=== PATIENT | male | born 1945 | race Two or more races ===

== ENCOUNTER 2017-06-04 22:58 | Inpatient (IN) | payer MEDICARE, MEDICAID ==
[~2017-06-04] VITALS: Ht 172.7 cm; Wt 88.5 kg
[~2017-06-04 22:58] MED LIST: ASPI81TA44 PO; ATEN50TA PO; CLOP75TA2 PO; ISOS30TA6 PO; METF500T4 PO; MULT-1168 PO; RANO10003 PO; ROSU10TA PO; SITA100T PO
[2017-06-04 23:22] LABS: BASOPHILS # (AUTO) 0.1 /CMM (0.0-0.2); BASOPHILS % (AUTO) 0.7 % (0.0-2.0); EOSINOPHILS # (AUTO) 0.1 /CMM (0.0-0.7); HEMATOCRIT 39 % (39-51); HEMOGLOBIN 12.3 g/dL (13.5-17.5); LYMPHOCYTES # (AUTO) 1.4 /CMM (0.8-4.8); LYMPHOCYTES % (AUTO) 18.9 % (20.0-44.0); MEAN CORPUSCULAR HEMOGLOBIN 26 PG (26.0-33.0); MEAN CORPUSCULAR HGB CONC 31 g/dl (31.0-36.0); MEAN CORPUSCULAR VOLUME 82 fL (80-96); MONOCYTES # (AUTO) 0.6 /CMM (0.1-1.30); MONOCYTES % (AUTO) 8.4 % (2.0-12.0); NEUTROPHILS # (AUTO) 5.1 /CMM (1.8-8.9); PLATELET COUNT (AUTO) 266 /CMM (150-450); WHITE BLOOD COUNT (AUTO) 7.2 K/uL (4.3-11.0)
--- NOTE | 2017-06-04 23:24 | NUR ---
71 YO MALE BIBA#89 PT FROM [facility], PT C/O CHEST PAIN SURG NURSE PT GIVEN 162MG OF ASPIRIN AND 3SPRAYS OF NITRO, PT PAIN FREE AT THIS TIME. PT SKIN WARM AND DRY, RR EVEN AN DUNLABORED. AWAITING ORDERS FROM [facility]
[2017-06-04 23:32] LABS: CALCIUM, SERUM 8.8 mg/dL (8.5-10.1); POTASSIUM 3.9 mmol/L (3.5-5.1)
[2017-06-04 23:40] LABS: INR 0.96 (0.87-1.13); PROTHROMBIN TIME 10.2 SECS (9.5-12.7)
[2017-06-04 23:41] LABS: TROPONIN I 0.044 ng/mL (0.00-0.056)
--- NOTE | 2017-06-05 | NUR ---
medicated pt as ordered
--- NOTE | 2017-06-05 00:58 | NUR ---
medicated pt as ordered
--- NOTE | 2017-06-05 01:21 | NUR ---
TRANSPORTED PT TO TELE BED WITHOUT INCIDENT
--- NOTE | 2017-06-05 01:28 | NUR ---
CUT TOBACCO BULKER INITIAL NOTES PT WAS BROUGHT UP BY ER VIA GURNEY, UNABLE TO AMBULATE. PT IS A/OX3 WITH CONFUSION. COMPLAINTS OF CHEST PAIN 8/10 AND KEEPS MUMBLING IN YI. BREATHING EVENLY AND UNLABORED ON ROOM AIR. TELE MONITOR SHOWS SR 83. IV ACCESS IS INTACT AND PATENT. BED IS IN LOW AND LOCKED POSITION, CALL LIGHT WITHIN REACH. WILL CONTINUE TO MONITOR PT
--- NOTE | 2017-06-05 01:50 | NUR ---
MEDS WERE HELD, ALREADY GIVEN IN ER PRIOR TO TRANSFER
[2017-06-05 04:00] VITALS: BP 153/85
--- NOTE | 2017-06-05 06:48 | NUR ---
SEMICONDUCTOR TECHNICIAN CLOSING NOTES PT IS IN BED RESTING. NO SIGNS OF SOB OR DISTRESS. TELE MONITOR SHOWING SR73. 0630 BS WAS 276- 6 UNITES WERE GIVEN. DENIES ANY CHEST PAIN AT THIS TIME. WILL ENDORSE TO DAYSHIFT
--- NOTE | 2017-06-05 07:30 | NUR ---
RN NOTES PATIENT ALERT AND ORIENTED X4. VS STABLE. NO C/O CHEST PAIN. NO RESPIRATORY DISTRESS NOTED. RESPIRATIONS EVEN AND UNLABORED. BED IN LOW POSITION. SIDE RAILS X2. CALL LIGHT WITHIN REACH. CONTINUE TO MONITOR.
[2017-06-05 08:00] VITALS: BP 180/85
[2017-06-05 08:09] LABS: TROPONIN I 0.325 ng/mL (0.00-0.056)
[2017-06-05 08:12] LABS: THYROID STIMULATING HORMONE 5.476 uIU/mL (0.358-3.74)
[2017-06-05 08:51] LABS: MAGNESIUM 1.5 mg/dL (1.8-2.4); PHOSPHORUS 3.1 mg/dL (2.5-4.9)
--- NOTE | 2017-06-05 12:30 | NUR ---
RN NOTES PATIENT COMPLAINED HEADACHE. TYLENOL 650 MG ADMINISTERED PRN. CONTINUE TO MONITOR.
--- NOTE | 2017-06-05 12:30 | NUR ---
RN NOTES PATIENT COMPLAINED NAUSEA AND VOMITING. 4 MG/2 ML ZOFRAN ADMINISTERED. CONTINUE TO MONITOR.
--- NOTE | 2017-06-05 19:35 | NUR ---
LOFTSMAN NOTE RECEIVED PATIENT FROM DAY SHIFT, PATIENT IS ALERT AND ORIENTEDX3, AZERI SPEAKER, ON BED REST, TELE MONITOR SR 71. IV ON LEFT WRIST 20G IS PATENT AND INTACT, HL ONLY. SRX2, BED IN LOW POSITION, CALL LIGHT WITHIN REACH, WILL CONTINUE TO MONITOR PATIENT.
--- NOTE | 2017-06-05 19:40 | NUR ---
TAPEMAN NOTE PATIENT COMPLAINS OF HEADACHE, TYLENOL 650MG PO GIVEN. WILL REASSESS EFFECTIVENESS.
--- NOTE | 2017-06-05 19:44 | NUR ---
AITCHBONE BREAKER NOTE DR. RIOS'S ORDER OF DUPLEX US ON LOWER EXTREMITIES RESULTED UPPER EXTREMITIES PER DAY SHIFT NURSE. FOLLOWED WITH RADIOLOGY ONCALL, THEY WILL F/U WITH MD AND WILL CALL BACK.
--- NOTE | 2017-06-05 19:48 | NUR ---
RN CLOSING NOTES PATIENT ALERT AND ORIENTED X4. VS STABLE. NO C/O CHEST PAIN. NO RESPIRATORY DISTRESS NOTED. RESPIRATIONS EVEN AND UNLABORED. BED IN LOW POSITION. SIDE RAILS X2. CALL LIGHT WITHIN REACH. ENDORSED TO WELDER/FABRICATORDATA ARCHITECT FOR CONTINUITY OF CARE.
[2017-06-05 20:00] VITALS: BP 188/103
--- NOTE | 2017-06-05 21:00 | NUR ---
MEDICAL STAFF CREDENTIALING COORDINATOR NOTE PATIENT'S BP AT 1999 WAS 188/103 PULSE 71. CONTACTED ONCALL MD CHAVARRIA, AND GOT AN ORDER OF CLONIDINE 0.1MG PO Q6H PRN. ORDERS PUT IN AND WILL CARRY OUT.
--- NOTE | 2017-06-05 23:50 | NUR ---
TOMBSTONE CARVER NOTE PATIENT COMPLAINS OF HEADACHE, MORPHINE 2MG IVP GIVEN. WILL MONITOR EFFECTIVENESS.
[2017-06-06] VITALS: BP 179/97
[2017-06-06 04:00] VITALS: BP 163/88
--- NOTE | 2017-06-06 05:55 | NUR ---
SVP DIGITAL SALES FOOD & COOKING NOTE PATIENT'S BS WAS 194MG/DL, NO INSULIN COVERAGE AT THIS TIME DUE TO BEING ON NPO STATUS FOR THE LEXISCAN THIS MORNING. CHG RN NOTIFIED WELL.
[2017-06-06 06:36] VITALS: BP 113/77
--- NOTE | 2017-06-06 06:54 | NUR ---
PROGRAM MANAGER NOTE PATIENT IS RESTING IN BED, NO S/S OF RESPIRATORY DISTRESS OR PAIN AT THIS TIME. IV ON LEFT WRIST IS PATENT AND INTACT, HL ONLY. TELE SR 65. PATIENT IS AWARE OF LEXISCAN TEST THIS MORNING. WILL ENDORSE TO DAY SHIFT NURSE FOR OMER.
[2017-06-06 07:24] LABS: EOSINOPHILS # (AUTO) 0.2 /CMM (0.0-0.7); EOSINOPHILS % (AUTO) 1.8 % (0.0-6.0); HEMATOCRIT 37 % (39-51); HEMOGLOBIN 11.8 g/dL (13.5-17.5); LYMPHOCYTES # (AUTO) 1.4 /CMM (0.8-4.8); LYMPHOCYTES % (AUTO) 15.6 % (20.0-44.0); MEAN CORPUSCULAR HEMOGLOBIN 26 PG (26.0-33.0); MEAN CORPUSCULAR HGB CONC 32 g/dl (31.0-36.0); MEAN CORPUSCULAR VOLUME 82 fL (80-96); MONOCYTES # (AUTO) 0.8 /CMM (0.1-1.30); MONOCYTES % (AUTO) 9.2 % (2.0-12.0); NEUTROPHILS # (AUTO) 6.7 /CMM (1.8-8.9); NEUTROPHILS % (AUTO) 73.4 % (43.0-81.0); PLATELET COUNT (AUTO) 276 /CMM (150-450); RDW COEFFICIENT OF VARIATION 15.9 (11.5-15.0); RED BLOOD CELL COUNT(AUTO) 4.49 MIL/uL (4.5-6.0); WHITE BLOOD COUNT (AUTO) 9.1 K/uL (4.3-11.0)
--- NOTE | 2017-06-06 07:30 | NUR ---
RN NOTES PATIENT ALERT AND ORIENTED X3. VS STABLE. NO C/O CHEST PAIN. NO RESPIRATORY DISTRESS NOTED. RESPIRATIONS EVEN AND UNLABORED. IV ACCESS ON LEFT WRIST IS PATENT AND INTACT. BED IN LOW POSITION. SIDE RAILS X2. CALL LIGHT WITHIN REACH. CONTINUE TO MONITOR.
[2017-06-06 07:51] LABS: ALBUMIN 3.1 g/dL (3.4-5.0); BILIRUBIN,TOTAL 0.7 mg/dL (0.2-1.0); CALCIUM, SERUM 8.9 mg/dL (8.5-10.1); CREATININE 0.9 mg/dL (0.6-1.3); MAGNESIUM 1.5 mg/dL (1.8-2.4); PHOSPHORUS 3.7 mg/dL (2.5-4.9); POTASSIUM 3.9 mmol/L (3.5-5.1); TOTAL PROTEIN, SERUM 7.2 g/dL (6.4-8.2); TROPONIN I 0.298 ng/mL (0.00-0.056)
[2017-06-06 08:00] VITALS: BP 113/77
--- NOTE | 2017-06-06 14:54 | NUR ---
RN NOTES 2 G OF MG TO BE GIVEN. PLEASE SEE MAR FOR CLARIFICATION.
[2017-06-06 16:00] VITALS: BP 161/97
--- NOTE | 2017-06-06 17:45 | NUR ---
RN NOTES PATIENT BLOOD PRESSURE 161/91. CLONIDINE 0.1 MG WAS GIVEN PRN. CONTINUE MONITOR AT THIS TIME.
--- NOTE | 2017-06-06 19:05 | NUR ---
RN CLOSING NOTES PATIENT ALERT AND ORIENTED X3. VS STABLE. NO C/O CHEST PAIN. NO RESPIRATORY DISTRESS NOTED. RESPIRATIONS EVEN AND UNLABORED. IV ACCESS ON RIGHT FOREARM IS PATENT AND INTACT. BED IN LOW POSITION. SIDE RAILS X2. CALL LIGHT WITHIN REACH. CONTINUE TO MONITOR AND ENDORSE TO LAWN CARE SPECIALISTPROCEDURAL NURSE FOR CONTINUITY OF CARE.
--- NOTE | 2017-06-06 19:40 | NUR ---
MS RN NOTE RECEIVED PATIENT FROM DAY SHIFT, PATIENT IS ALERT AND ORIENTEDX3, MOHAWK SPEAKER, SLEEPING AT THIS TIME. NO S/S OF RESPIRATORY DISTRESS OR PAIN AT THIS TIME. IV ON RIGHT FA IS PATENT AND INTACT, HL ONLY. SRX2, BED IN LOW POSITION, CALL LIGHT WITHIN REACH, WILL CONTINUE TO MONITOR PATIENT.
[2017-06-06 20:00] VITALS: BP 133/70
--- NOTE | 2017-06-07 06:46 | NUR ---
MS RN NOTE PATIENT IS RESTING IN BED COMFORTABLY, NO ACUTE EVENT NOTED THROUGHOUT THE SHIFT. IV ON RIGHT FA IS PATENT AND INTACT, HL. WILL ENDORSE TO DAY SHIFT NURSE FOR OMER.
--- NOTE | 2017-06-07 07:30 | NUR ---
MS RN AM NOTES RECEIVED PATIENT IN BED, ALERT AND ORIENTEDX3, ALBANIAN SPEAKING, ON ROOM AIR, NOT IN ANY DISTRESS, NO SOB, DENIES PAIN AT THIS TIME, IV ON RIGHT FA G22 FLUSHES WELL, SITE CLEAR, CCHO DIET, BED REST, INDEPENDENT OF BED MOBILITY, SRX2, BED IN LOW POSITION, CALL LIGHT WITHIN REACH, WILL CONTINUE TO MONITOR PATIENT.
[2017-06-07 07:50] LABS: CALCIUM, SERUM 8.4 mg/dL (8.5-10.1); MAGNESIUM 1.6 mg/dL (1.8-2.4); POTASSIUM 3.7 mmol/L (3.5-5.1)
[2017-06-07 08:00] VITALS: BP 144/67
--- NOTE | 2017-06-07 10:20 | NUR ---
MS RN NOTES ADMINISTERED DUE MEDS. MAGNESIUM IV BAG #1 GIVEN AND COMPLETED. STARTED MAGNESIUM BAG #2.
--- NOTE | 2017-06-07 12:04 | NUR ---
MS RN NOTES ACCUCHECK. BS 214 MG/DL. ADMINISTERED 4 UNITS HUM R PER SS.
--- NOTE | 2017-06-07 13:04 | NUR ---
MS RN NOTES REPORT GIVEN TO ROOSEVELT RN - FACILITY STAFF. PATIENT TO BE PICKED UP TO AMBULANCE AT 1400
[2017-06-07 16:00] VITALS: BP 177/91
--- NOTE | 2017-06-07 16:55 | NUR ---
MS RN NOTES BP 177/91 HR 82. CATAPRES 0.1 MG GIVEN.
--- NOTE | 2017-06-07 17:00 | NUR ---
RN NOTES ACCUCHECK. BS 146 MG/DL. ADMINISTERED 2 UNITS HUM R PER SS.
[2017-06-07 17:30] VITALS: BP 165/86
--- NOTE | 2017-06-07 17:33 | NUR ---
MS RN NOTES BP RECHECKED 165/86 NE 62, RR 19 TEMP 98.2 O2 SAT 95% PATIENT DISCHARGED TO [facility] TODAY PER MD IN STABLE CONDITION. PROVIDED DC INSTRUCTIONS, MED RECON LIST AND HEALTH TEACHINGS. PT TO FOLLOW UP WITH PCP IN 1-2 WEEKS AND WILL MAKE OWN APPOINTMENT OR PER FACILITY PROTOCOL. RFA IV ACCESS REMOVED, CATH TIP COMPLETE NO BLEEDING DRESSING IN PLACE. ALL PHOTOS OF SKIN ISSUES TAKEN AND PLACED INSIDE CHART. ALL BELONGINGS CHECKED AND RETURNED. ALL PAPER WORKS SIGNED. PT PICKED UP BY 2 AMBULANCE CREW TO TRANSPORT TO FACILITY. ACCOMPANIED BY PT'S TO FACILITY.
== END 2017-06-07 17:30 | DRG 281 ==
LOC: ER 22:59 → TELE 06-05 00:36 → MED 06-06 10:13
DX: I21.4 Non-ST elevation (NSTEMI) myocardial infarction (principal); D68.59 Other primary thrombophilia; I11.0 Hypertensive heart disease with heart failure; I50.9 Heart failure, unspecified; I48.0 Paroxysmal atrial fibrillation; E83.42 Hypomagnesemia; E11.9 Type 2 diabetes mellitus without complications; Z95.1 Presence of aortocoronary bypass graft; E78.5 Hyperlipidemia, unspecified; E66.9 Obesity, unspecified; I25.10 Atherosclerotic heart disease of native coronary artery without angina pectoris; Z68.29 Body mass index [BMI] 29.0-29.9, adult; Z79.84 Long term (current) use of oral hypoglycemic drugs; Z79.82 Long term (current) use of aspirin
CPT/HCPCS: 36415; 71010-TC; 80048-TC; 80053-TC; 80061-TC; 82306; 82962-TC; 83735-TC; 84100-TC; 84439-TC; 84443-TC; 84484-TC; 85025-TC; 85730-TC; 87081-TC; 93307-TC; 93970-TC; A4606; A9502; J0360; J1815; J2270; J2405; J2785; J3475; J3490; Z7610

== ENCOUNTER 2017-09-23 14:40 | Emergency (ER) | payer OTHER, MEDICARE, MEDICAID ==
[~2017-09-23] VITALS: Ht 162.6 cm; Wt 74.8 kg
[~2017-09-23 14:40] MED LIST changes: +CLOP75TA15 PO; -CLOP75TA2 PO
--- NOTE | 2017-09-23 14:46 | NUR ---
PT BROCK FROM [employer]. TONGUE LAC NOTED. PT STATES WAS BLEEDING SINCE THIS AM. UNABLE TO RECALL WHAT HAPPEN. 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 DENIES ANY OTHER COMPLAINTS. AWAITING MD PASCUAL.
--- NOTE | 2017-09-23 15:26 | NUR ---
DR BRADEN AT BEDSIDE FOR EVAL.
[2017-09-23 15:45] LABS: BASOPHILS # (AUTO) 0.3 /CMM (0.0-0.2); BASOPHILS % (AUTO) 4.2 % (0.0-2.0); EOSINOPHILS # (AUTO) 0.1 /CMM (0.0-0.7); EOSINOPHILS % (AUTO) 0.7 % (0.0-6.0); HEMATOCRIT 24 % (39-51); HEMOGLOBIN 8.1 g/dL (13.5-17.5); LYMPHOCYTES # (AUTO) 1.3 /CMM (0.8-4.8); LYMPHOCYTES % (AUTO) 17.6 % (20.0-44.0); MEAN CORPUSCULAR HEMOGLOBIN 26 PG (26.0-33.0); MEAN CORPUSCULAR HGB CONC 33 g/dl (31.0-36.0); MEAN CORPUSCULAR VOLUME 80 fL (80-96); MONOCYTES # (AUTO) 0.4 /CMM (0.1-1.30); MONOCYTES % (AUTO) 5.5 % (2.0-12.0); NEUTROPHILS # (AUTO) 5.2 /CMM (1.8-8.9); PLATELET COUNT (AUTO) 279 /CMM (150-450); RDW COEFFICIENT OF VARIATION 15.4 (11.5-15.0); RED BLOOD CELL COUNT(AUTO) 3.05 MIL/uL (4.5-6.0); WHITE BLOOD COUNT (AUTO) 7.3 K/uL (4.3-11.0)
[2017-09-23 15:52] LABS: CALCIUM, SERUM 8.6 mg/dL (8.5-10.1); CARBON DIOXIDE 30 mmol/L (21-32); CHLORIDE 105 mmol/L (98-107); CREATININE 0.9 mg/dL (0.6-1.3); GLUCOSE 160 mg/dL (74-106); POTASSIUM 4.3 mmol/L (3.5-5.1); SODIUM SERUM 140 mmol/L (136-145); UREA NITROGEN, BLOOD 22 mg/dL (7-18)
[2017-09-23 15:57] LABS: INR 1.17 (0.87-1.13)
--- NOTE | 2017-09-23 16:00 | NUR ---
CALLED AT [phone], TRANSFERRED CALL TO .
--- NOTE | 2017-09-23 16:12 | NUR ---
REQUESTED NINO FOR TRANSPORT BACK TO [facility], ETA 30-45 MIN
--- NOTE | 2017-09-23 16:47 | NUR ---
Patient discharged to home in stable condition. Written and verbal after care instructions given. Patient verbalizes understanding of instruction.
[2017-09-23 16:48] VITALS: BP 131/63
== END 2017-09-23 16:49 | disposition home or self-care (01) ==
LOC: ER 14:44
DX: R58 Hemorrhage, not elsewhere classified (principal); T45.515A Adverse effect of anticoagulants, initial encounter; D64.9 Anemia, unspecified; E03.9 Hypothyroidism, unspecified; E11.9 Type 2 diabetes mellitus without complications; F03.90 Unspecified dementia, unspecified severity, without behavioral disturbance, psychotic disturbance, mood disturbance, and anxiety; F32.9 Major depressive disorder, single episode, unspecified; F41.9 Anxiety disorder, unspecified; I10 Essential (primary) hypertension; I25.10 Atherosclerotic heart disease of native coronary artery without angina pectoris; I48.91 Unspecified atrial fibrillation; Z79.82 Long term (current) use of aspirin; Z95.1 Presence of aortocoronary bypass graft; Y92.89 Other specified places as the place of occurrence of the external cause
CPT/HCPCS: 36415; 80048; 85025; 85730; 99284; A4606; Z7610

== ENCOUNTER 2017-09-24 21:49 | Inpatient (IN) | payer MEDICARE, MEDICAID ==
[~2017-09-24] VITALS: Ht 167.6 cm; Wt 86.2 kg
[2017-09-24 22:03] LABS: BASOPHILS # (AUTO) 0.2 /CMM (0.0-0.2); BASOPHILS % (AUTO) 3.2 % (0.0-2.0); EOSINOPHILS # (AUTO) 0.1 /CMM (0.0-0.7); EOSINOPHILS % (AUTO) 1.3 % (0.0-6.0); HEMATOCRIT 23 % (39-51); HEMOGLOBIN 7.2 g/dL (13.5-17.5); LYMPHOCYTES # (AUTO) 1.7 /CMM (0.8-4.8); LYMPHOCYTES % (AUTO) 26.3 % (20.0-44.0); MEAN CORPUSCULAR HEMOGLOBIN 26 PG (26.0-33.0); MEAN CORPUSCULAR HGB CONC 32 g/dl (31.0-36.0); MEAN CORPUSCULAR VOLUME 82 fL (80-96); MONOCYTES # (AUTO) 0.4 /CMM (0.1-1.30); MONOCYTES % (AUTO) 6.4 % (2.0-12.0); NEUTROPHILS % (AUTO) 62.8 % (43.0-81.0); PLATELET COUNT (AUTO) 253 /CMM (150-450); RDW COEFFICIENT OF VARIATION 16.3 (11.5-15.0); RED BLOOD CELL COUNT(AUTO) 2.75 MIL/uL (4.5-6.0); WHITE BLOOD COUNT (AUTO) 6.4 K/uL (4.3-11.0)
[2017-09-24 22:28] LABS: CALCIUM, SERUM 8.6 mg/dL (8.5-10.1); CARBON DIOXIDE 27 mmol/L (21-32); CHLORIDE 104 mmol/L (98-107); CREATININE 1.3 mg/dL (0.6-1.3); GLUCOSE 249 mg/dL (74-106); INR 1.3 (0.87-1.13); POTASSIUM 4.7 mmol/L (3.5-5.1); SODIUM SERUM 141 mmol/L (136-145); UREA NITROGEN, BLOOD 21 mg/dL (7-18)
[2017-09-24] MEDS ORDERED: ASPIRIN 325 MG TABLET PO ONE (22:30)
[2017-09-24] MEDS ORDERED: NITROGLYCERIN 0.4 MG/TAB BOTTLE SL ONE (22:30)
[2017-09-24] MEDS ORDERED: IV NS 0.9% 1,000 ML BAG IV ONE (22:30)
[2017-09-24] MEDS ORDERED: ONDANSETRON HCL/PF 4 MG/2 ML VIAL ONE (22:35)
[2017-09-24] MEDS ORDERED: MORPHINE SULFATE INJ 4 MG/ML DISP.SYRIN ONE (22:36)
[2017-09-24 22:37] LABS: TROPONIN I 0.106 ng/mL (0.00-0.056)
[2017-09-24] MEDS ORDERED: MORPHINE SULFATE INJ 2 MG/ML DISP.SYRIN IV ONE (23:00)
[2017-09-24] MEDS ORDERED: ONDANSETRON HCL/PF 4 MG/2 ML VIAL IV ONE (23:00)
[2017-09-25] VITALS (14 sets, daily range): BP systolic 106–181; BP diastolic 56–91
[2017-09-25] MEDS ORDERED: DEXTROSE 50%-WATER 50 ML DISP.SYRIN IV PRN (00:30)
[2017-09-25] MEDS ORDERED: ONDANSETRON HCL/PF 4 MG/2 ML VIAL IVP PRN (00:30)
[2017-09-25] MEDS ORDERED: ZOLPIDEM TARTRATE 5 MG TABLET PO PRN (00:30)
[2017-09-25] MEDS ORDERED: Z GUARD REMEDY 2 OZ OINT TP PRN (00:30)
[2017-09-25] MEDS ORDERED: ACETAMINOPHEN 325 MG TABLET ONE (01:44)
[2017-09-25] MEDS: ACETAMINOPHEN 325 MG TABLET PO PRN ×2 (01:46→22:45)
[2017-09-25] MEDS: BLOOD SUGAR DIAGNOSTIC 1 EACH STRIP IN SCH ×4 (06:30→21:51)
[2017-09-25] MEDS: INSULIN REGULAR, HUMAN 100 UNIT/ML 3 ML VIAL SQ PRN ×4 (06:31→21:54)
[2017-09-25 07:52] LABS: BASOPHILS # (AUTO) 0.1 /CMM (0.0-0.2); BASOPHILS % (AUTO) 1.2 % (0.0-2.0); EOSINOPHILS # (AUTO) 0.1 /CMM (0.0-0.7); EOSINOPHILS % (AUTO) 1.4 % (0.0-6.0); HEMATOCRIT 25 % (39-51); HEMOGLOBIN 8.4 g/dL (13.5-17.5); LYMPHOCYTES # (AUTO) 1.7 /CMM (0.8-4.8); LYMPHOCYTES % (AUTO) 22.5 % (20.0-44.0); MEAN CORPUSCULAR HEMOGLOBIN 28 PG (26.0-33.0); MEAN CORPUSCULAR HGB CONC 33 g/dl (31.0-36.0); MEAN CORPUSCULAR VOLUME 84 fL (80-96); MONOCYTES # (AUTO) 0.7 /CMM (0.1-1.30); MONOCYTES % (AUTO) 9.2 % (2.0-12.0); NEUTROPHILS % (AUTO) 65.7 % (43.0-81.0); PLATELET COUNT (AUTO) 225 /CMM (150-450); RDW COEFFICIENT OF VARIATION 16.1 (11.5-15.0); RED BLOOD CELL COUNT(AUTO) 3.03 MIL/uL (4.5-6.0); WHITE BLOOD COUNT (AUTO) 7.6 K/uL (4.3-11.0)
[2017-09-25 08:07] LABS: ALANINE AMINOTRANSFERASE 22 U/L (12-78); ALKALINE PHOSPHATASE 81 U/L (46-116); ASPARTATE AMINOTRANSFERASE 15 U/L (15-37); BILIRUBIN,TOTAL 0.3 mg/dL (0.2-1.0); CALCIUM, SERUM 8.6 mg/dL (8.5-10.1); CARBON DIOXIDE 30 mmol/L (21-32); CHLORIDE 104 mmol/L (98-107); CREATININE 1.1 mg/dL (0.6-1.3); GLUCOSE 180 mg/dL (74-106); MAGNESIUM 1.7 mg/dL (1.8-2.4); PHOSPHORUS 3.3 mg/dL (2.5-4.9); POTASSIUM 3.9 mmol/L (3.5-5.1); SODIUM SERUM 139 mmol/L (136-145); TOTAL PROTEIN, SERUM 6.5 g/dL (6.4-8.2); UREA NITROGEN, BLOOD 20 mg/dL (7-18)
[2017-09-25 08:10] LABS: CHOLESTEROL 185 mg/dL (<200); HDL CHOLESTEROL 35 mg/dL (40-60); LDL 130 mg/dL (0-99); THYROID STIMULATING HORMONE 8.076 uIU/mL (0.358-3.74); TRIGLYCERIDES 144 mg/dL (30-150)
[2017-09-25 08:21] LABS: TROPONIN I 1.161 ng/mL (0.00-0.056)
[2017-09-25] MEDS: ISOSORBIDE MONONITRATE (30MG) 30 MG TAB.SR.24H PO SCH (08:57)
[2017-09-25] MEDS: CLOPIDOGREL BISULFATE 75 MG TABLET PO SCH (08:57)
[2017-09-25] MEDS: METFORMIN 500 MG TABLET PO SCH ×2 (08:57→16:25)
[2017-09-25] MEDS: ATENOLOL 50 MG TABLET PO SCH (08:58)
[2017-09-25] MEDS: ASPIRIN EC 81 MG TABLET.DR PO SCH (08:58)
[2017-09-25] MEDS: LINAGLIPTIN 5 MG TABLET PO SCH (08:58)
[2017-09-25] MEDS: LOSARTAN POTASSIUM 50 MG TABLET PO SCH (08:59)
[2017-09-25] MEDS: Magnesium 1GM/D5W 100ML PREMIX 100 ML IV SCH ×2 (08:59→09:49)
[2017-09-25] MEDS: ENOXAPARIN SODIUM 80 MG/0.8 ML DISP.SYRIN SQ SCH ×2 (09:50→21:51)
[2017-09-25] MEDS: ATORVASTATIN 10 MG TABLET PO SCH (21:47)
[2017-09-25] MEDS ORDERED: NITROGLYCERIN 0.4 MG/TAB BOTTLE ONE (23:59)
[2017-09-26] VITALS (9 sets, daily range): BP systolic 96–166; BP diastolic 57–92
[2017-09-26] MEDS: NITROGLYCERIN 0.4 MG/TAB BOTTLE SL PRN ×5 (00:02→22:13)
[2017-09-26] MEDS ORDERED: NITROGLYCERIN PACKET 1 GM PACKET ONE (00:08)
[2017-09-26] MEDS ORDERED: ALPRAZOLAM 0.25 MG TABLET ONE (00:09)
[2017-09-26] MEDS: NITROGLYCERIN PACKET 1 GM PACKET TOP SCH ×3 (00:10→17:03)
[2017-09-26] MEDS: ALPRAZOLAM 0.25 MG TABLET PO PRN (00:43)
[2017-09-26] MEDS ORDERED: MORPHINE SULFATE INJ 4 MG/ML DISP.SYRIN ONE (01:12)
[2017-09-26] MEDS: MORPHINE SULFATE INJ 4 MG/ML DISP.SYRIN IV PRN ×2 (01:14→22:10)
[2017-09-26] MEDS ORDERED: HEPARIN INFUSION/D5W 500 ML IV PRN ×2 (01:30→02:30)
[2017-09-26] MEDS ORDERED: AMIODARONE 900 MG in IV D5W 482 ML IV PRN (01:30)
[2017-09-26] MEDS ORDERED: DILTIAZEM HCL 50 MG IV IV ONE (01:30)
[2017-09-26] MEDS ORDERED: AMIODARONE 150 MG in IV D5W 100 ML IV ONE (01:30)
[2017-09-26] MEDS ORDERED: AMIODARONE 150 MG/3 ML VIAL IV ONE ×2 (01:37→01:39)
[2017-09-26] MEDS ORDERED: DILTIAZEM HCL 25 MG IV ONE (02:00)
[2017-09-26] MEDS ORDERED: HEPARIN SODIUM, PORCINE 5000 UNITS/1 ML VIAL ONE (02:25)
[2017-09-26] MEDS ORDERED: HEPARIN SODIUM, PORCINE 5000 UNITS/1 ML VIAL IV ONE (02:30)
[2017-09-26 07:03] LABS: EOSINOPHILS # (AUTO) 0.1 /CMM (0.0-0.7); EOSINOPHILS % (AUTO) 1.6 % (0.0-6.0); HEMATOCRIT 25 % (39-51); LYMPHOCYTES # (AUTO) 2.4 /CMM (0.8-4.8); LYMPHOCYTES % (AUTO) 25.5 % (20.0-44.0); MEAN CORPUSCULAR HEMOGLOBIN 27 PG (26.0-33.0); MEAN CORPUSCULAR HGB CONC 33 g/dl (31.0-36.0); MEAN CORPUSCULAR VOLUME 84 fL (80-96); MONOCYTES # (AUTO) 0.8 /CMM (0.1-1.30); MONOCYTES % (AUTO) 8.6 % (2.0-12.0); NEUTROPHILS # (AUTO) 5.9 /CMM (1.8-8.9); NEUTROPHILS % (AUTO) 64.3 % (43.0-81.0); PLATELET COUNT (AUTO) 227 /CMM (150-450); RDW COEFFICIENT OF VARIATION 16.6 (11.5-15.0); RED BLOOD CELL COUNT(AUTO) 2.92 MIL/uL (4.5-6.0); WHITE BLOOD COUNT (AUTO) 9.2 K/uL (4.3-11.0)
[2017-09-26 07:15] LABS: ALANINE AMINOTRANSFERASE 25 U/L (12-78); ALBUMIN 2.9 g/dL (3.4-5.0); ALKALINE PHOSPHATASE 79 U/L (46-116); ASPARTATE AMINOTRANSFERASE 37 U/L (15-37); BILIRUBIN,TOTAL 0.4 mg/dL (0.2-1.0); CALCIUM, SERUM 8.6 mg/dL (8.5-10.1); CARBON DIOXIDE 27 mmol/L (21-32); CHLORIDE 102 mmol/L (98-107); CREATININE 1.1 mg/dL (0.6-1.3); GLUCOSE 253 mg/dL (74-106); MAGNESIUM 1.5 mg/dL (1.8-2.4); PHOSPHORUS 3.2 mg/dL (2.5-4.9); POTASSIUM 4.1 mmol/L (3.5-5.1); SODIUM SERUM 136 mmol/L (136-145); TOTAL PROTEIN, SERUM 6.4 g/dL (6.4-8.2); UREA NITROGEN, BLOOD 13 mg/dL (7-18)
[2017-09-26 07:38] LABS: TROPONIN I 1.679 ng/mL (0.00-0.056)
[2017-09-26] MEDS: BLOOD SUGAR DIAGNOSTIC 1 EACH STRIP IN SCH ×4 (08:41→21:06)
[2017-09-26] MEDS: LINAGLIPTIN 5 MG TABLET PO SCH (08:46)
[2017-09-26] MEDS: ISOSORBIDE MONONITRATE (30MG) 30 MG TAB.SR.24H PO SCH (08:47)
[2017-09-26] MEDS: METFORMIN 500 MG TABLET PO SCH ×2 (08:47→16:14)
[2017-09-26] MEDS: LOSARTAN POTASSIUM 50 MG TABLET PO SCH (08:48)
[2017-09-26] MEDS: CLOPIDOGREL BISULFATE 75 MG TABLET PO SCH (08:49)
[2017-09-26] MEDS: ASPIRIN EC 81 MG TABLET.DR PO SCH (08:51)
[2017-09-26] MEDS: ENOXAPARIN SODIUM 80 MG/0.8 ML DISP.SYRIN SQ SCH (08:52)
[2017-09-26] MEDS: ATENOLOL 50 MG TABLET PO SCH (09:03)
[2017-09-26] MEDS: INSULIN REGULAR, HUMAN 100 UNIT/ML 3 ML VIAL SQ PRN ×4 (10:12→21:09)
[2017-09-26] MEDS: Magnesium 1GM/D5W 100ML PREMIX 100 ML IV SCH ×2 (12:57→14:21)
[2017-09-26] MEDS ORDERED: SOD FERRIC GLUC 125 MG in IV NS 0.9% 100 ML IV SCH (14:00)
[2017-09-26] MEDS: ENOXAPARIN SODIUM 100 MG/ML DISP.SYRIN SQ SCH (20:59)
[2017-09-26] MEDS: ATORVASTATIN 10 MG TABLET PO SCH (21:02)
[2017-09-27] VITALS: BP 142/78
[2017-09-27] MEDS: NITROGLYCERIN PACKET 1 GM PACKET TOP SCH ×3 (00:13→12:01)
[2017-09-27 00:24] LABS: INR 0.99 (0.87-1.13)
[2017-09-27] MEDS: MORPHINE SULFATE INJ 4 MG/ML DISP.SYRIN IV PRN ×2 (01:09→06:58)
[2017-09-27 04:00] VITALS: BP 113/61
[2017-09-27 05:59] LABS: BASOPHILS % (AUTO) 0.4 % (0.0-2.0); EOSINOPHILS # (AUTO) 0.1 /CMM (0.0-0.7); EOSINOPHILS % (AUTO) 1.8 % (0.0-6.0); HEMATOCRIT 24 % (39-51); HEMOGLOBIN 7.7 g/dL (13.5-17.5); LYMPHOCYTES # (AUTO) 1.2 /CMM (0.8-4.8); LYMPHOCYTES % (AUTO) 17.5 % (20.0-44.0); MEAN CORPUSCULAR HEMOGLOBIN 27 PG (26.0-33.0); MEAN CORPUSCULAR HGB CONC 32 g/dl (31.0-36.0); MEAN CORPUSCULAR VOLUME 84 fL (80-96); MONOCYTES # (AUTO) 0.7 /CMM (0.1-1.30); MONOCYTES % (AUTO) 9.7 % (2.0-12.0); NEUTROPHILS # (AUTO) 4.8 /CMM (1.8-8.9); NEUTROPHILS % (AUTO) 70.6 % (43.0-81.0); PLATELET COUNT (AUTO) 231 /CMM (150-450); RDW COEFFICIENT OF VARIATION 16.7 (11.5-15.0); RED BLOOD CELL COUNT(AUTO) 2.81 MIL/uL (4.5-6.0); WHITE BLOOD COUNT (AUTO) 6.8 K/uL (4.3-11.0)
[2017-09-27] MEDS: BLOOD SUGAR DIAGNOSTIC 1 EACH STRIP IN SCH ×2 (07:30→12:01)
[2017-09-27] MEDS: ALPRAZOLAM 0.25 MG TABLET PO PRN (07:38)
[2017-09-27 07:39] LABS: CALCIUM, SERUM 8.7 mg/dL (8.5-10.1); CARBON DIOXIDE 26 mmol/L (21-32); CHLORIDE 104 mmol/L (98-107); CREATININE 0.9 mg/dL (0.6-1.3); GLUCOSE 170 mg/dL (74-106); PHOSPHORUS 3.3 mg/dL (2.5-4.9); POTASSIUM 4.2 mmol/L (3.5-5.1); SODIUM SERUM 139 mmol/L (136-145); UREA NITROGEN, BLOOD 13 mg/dL (7-18)
[2017-09-27] MEDS: LOSARTAN POTASSIUM 50 MG TABLET PO SCH (08:09)
[2017-09-27] MEDS: ASPIRIN EC 81 MG TABLET.DR PO SCH (08:09)
[2017-09-27] MEDS: ISOSORBIDE MONONITRATE (30MG) 30 MG TAB.SR.24H PO SCH (08:10)
[2017-09-27] MEDS: ATENOLOL 50 MG TABLET PO SCH (08:10)
[2017-09-27] MEDS: METOPROLOL TARTRATE INJ 5 MG/5 ML AMPUL IVP PRN ×3 (08:24→08:39)
[2017-09-27] MEDS: METFORMIN 500 MG TABLET PO SCH (08:38)
[2017-09-27] MEDS: LINAGLIPTIN 5 MG TABLET PO SCH (08:38)
[2017-09-27] MEDS: ENOXAPARIN SODIUM 100 MG/ML DISP.SYRIN SQ SCH (08:38)
[2017-09-27] MEDS ORDERED: CLOPIDOGREL BISULFATE 75 MG TABLET PO SCH (09:00)
[2017-09-27 09:42] LABS: TROPONIN I 1.306 ng/mL (0.00-0.056)
[2017-09-27 09:49] LABS: BILIRUBIN,TOTAL 0.3 mg/dL (0.2-1.0)
[2017-09-27 09:50] LABS: ALANINE AMINOTRANSFERASE 24 U/L (12-78); ALKALINE PHOSPHATASE 80 U/L (46-116); ASPARTATE AMINOTRANSFERASE 41 U/L (15-37); MAGNESIUM 1.8 mg/dL (1.8-2.4); TOTAL PROTEIN, SERUM 6.5 g/dL (6.4-8.2)
[2017-09-27] MEDS ORDERED: AMIODARONE HCL 200 MG TABLET PO SCH (10:00)
[2017-09-27 12:01] VITALS: BP 112/82
== END 2017-09-27 13:03 | disposition short-term general hospital (02) | DRG 281 ==
LOC: ER 21:51 → TELE 22:53 → TELE-TD 09-26 01:37 → TELE1 09-26 11:06 → TELE-TD 09-26 11:09
PROVIDERS: ADMIT Nurse Practitioner Acute Care; ATTEND Nurse Practitioner Acute Care
PROC: 30233N1 Transfusion of Nonautologous Red Blood Cells into Peripheral Vein, Percutaneous Approach (ICD-10-PCS; principal; 2017-09-24)
DX: I24.9 Acute ischemic heart disease, unspecified (principal); I21.4 Non-ST elevation (NSTEMI) myocardial infarction; D68.59 Other primary thrombophilia; I11.0 Hypertensive heart disease with heart failure; E83.42 Hypomagnesemia; I50.9 Heart failure, unspecified; I48.91 Unspecified atrial fibrillation; D64.9 Anemia, unspecified; E11.9 Type 2 diabetes mellitus without complications; E03.9 Hypothyroidism, unspecified; E78.5 Hyperlipidemia, unspecified; I25.119 Atherosclerotic heart disease of native coronary artery with unspecified angina pectoris; F03.90 Unspecified dementia, unspecified severity, without behavioral disturbance, psychotic disturbance, mood disturbance, and anxiety; F32.9 Major depressive disorder, single episode, unspecified; Z95.1 Presence of aortocoronary bypass graft; Z95.5 Presence of coronary angioplasty implant and graft; F41.9 Anxiety disorder, unspecified; Z79.82 Long term (current) use of aspirin; Z79.899 Other long term (current) drug therapy; Z79.84 Long term (current) use of oral hypoglycemic drugs; Z79.01 Long term (current) use of anticoagulants; E66.9 Obesity, unspecified
CPT/HCPCS: 36415; 71045-TC; 80048-TC; 80053-TC; 80061-TC; 82306; 82728-TC; 82962-TC; 83540-TC; 83735-TC; 84100-TC; 84439-TC; 84443-TC; 84484-TC; 85025-TC; 85610-TC; 85730-TC; 86850-TC; 86921-TC; 87081-TC; 93307-TC; A4606; J0282; J1644; J1650; J1815; J2270; J2405; J2916; J3475; J3490; J7030; J7050; J7060; P9016-BL; Z7610

== ENCOUNTER 2017-10-21 00:54 | Inpatient (IN) | payer MEDICARE, MEDICAID ==
[~2017-10-21] VITALS: Ht 175.3 cm; Wt 83.0 kg
--- NOTE | 2017-10-21 00:55 | NUR ---
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 PT WAS GIVEN ASPIRIN 162MG PO AND NITRO SPRAY X1. SKIN WARM, NONDIAPHORETIC. PT AAOX2 NO ACUTE DISTRESS NOTED, RESP EVEN AND UNLABORED. PLACE PT ON CARDIAC MONITORING, CONTINUOUS POX. SL 20G TO LFA PANTRY GOODS WORKER. PENDING ER MD PASCUAL.
--- NOTE | 2017-10-21 01:03 | NUR ---
ER MD AT BEDSIDE TO EVAL PT WITH ORDERS RECEIVED.
--- NOTE | 2017-10-21 01:14 | NUR ---
DECISION ANALYST AT BEDSIDE FOR BLOOD DRAW.
[2017-10-21] MEDS ORDERED: ONDANSETRON HCL/PF 4 MG/2 ML VIAL ONE (01:17)
[2017-10-21] MEDS ORDERED: MORPHINE SULFATE INJ 4 MG/ML DISP.SYRIN ONE (01:17)
[2017-10-21] MEDS ORDERED: NITROGLYCERIN PACKET 1 GM PACKET ONE (01:18)
[2017-10-21 01:24] LABS: EOSINOPHILS # (AUTO) 0.1 /CMM (0.0-0.7); EOSINOPHILS % (AUTO) 1.7 % (0.0-6.0); HEMATOCRIT 33 % (39-51); HEMOGLOBIN 10.5 g/dL (13.5-17.5); LYMPHOCYTES % (AUTO) 33.8 % (20.0-44.0); MEAN CORPUSCULAR HEMOGLOBIN 26 PG (26.0-33.0); MEAN CORPUSCULAR HGB CONC 32 g/dl (31.0-36.0); MEAN CORPUSCULAR VOLUME 80 fL (80-96); MONOCYTES # (AUTO) 0.6 /CMM (0.1-1.30); MONOCYTES % (AUTO) 10.4 % (2.0-12.0); NEUTROPHILS # (AUTO) 3.2 /CMM (1.8-8.9); NEUTROPHILS % (AUTO) 54.1 % (43.0-81.0); PLATELET COUNT (AUTO) 264 /CMM (150-450); RDW COEFFICIENT OF VARIATION 16.4 (11.5-15.0); RED BLOOD CELL COUNT(AUTO) 4.11 MIL/uL (4.5-6.0); WHITE BLOOD COUNT (AUTO) 5.9 K/uL (4.3-11.0)
[2017-10-21] MEDS ORDERED: APIX2.5T PO (01:26)
[2017-10-21] MEDS ORDERED: DIGO125T PO (01:26)
[2017-10-21] MEDS ORDERED: ACET325T53 PO (01:26)
[2017-10-21] MEDS ORDERED: BISA10SU61 RC (01:26)
[2017-10-21] MEDS ORDERED: MAGN2400 PO (01:26)
[2017-10-21] MEDS ORDERED: NITR0.4T48 SL (01:26)
[2017-10-21] MEDS ORDERED: DIPH25CA83 PO (01:26)
[2017-10-21] MEDS ORDERED: MELA3TAB PO (01:26)
[2017-10-21] MEDS ORDERED: ATOR10TA PO (01:26)
[2017-10-21] MEDS ORDERED: FURO40TA5 PO (01:26)
[2017-10-21] MEDS ORDERED: LOSA50TA21 PO (01:26)
[2017-10-21] MEDS ORDERED: NA P133E RC (01:26)
[2017-10-21] MEDS ORDERED: RANI150T8 PO (01:26)
[2017-10-21] MEDS ORDERED: NITROGLYCERIN PACKET 1 GM PACKET TD ONE (01:30)
[2017-10-21] MEDS ORDERED: ENOXAPARIN SODIUM 60 MG/0.6 ML DISP.SYRIN SQ ONE (01:30)
[2017-10-21] MEDS ORDERED: MORPHINE SULFATE INJ 2 MG/ML DISP.SYRIN IV ONE (01:30)
[2017-10-21] MEDS ORDERED: METOPROLOL TARTRATE INJ 5 MG/5 ML AMPUL IV ONE (01:30)
[2017-10-21] MEDS ORDERED: ONDANSETRON HCL/PF 4 MG/2 ML VIAL IVP ONE (01:30)
[2017-10-21] MEDS ORDERED: NITROGLYCERIN 0.4 MG/TAB BOTTLE SL ONE (01:30)
[2017-10-21] MEDS ORDERED: METOPROLOL TARTRATE INJ 5 MG/5 ML AMPUL ONE (01:35)
[2017-10-21 01:43] LABS: D-DIMER 0.45 mg/L(FEU (0.17-0.50); INR 1.08 (0.87-1.13); TROPONIN I 0.077 ng/mL (0.00-0.056)
[2017-10-21] MEDS ORDERED: ENOXAPARIN SODIUM 80 MG/0.8 ML DISP.SYRIN SQ ONE (01:46)
[2017-10-21 01:48] LABS: ALANINE AMINOTRANSFERASE 32 U/L (12-78); ALBUMIN 3.5 g/dL (3.4-5.0); ALKALINE PHOSPHATASE 117 U/L (46-116); ASPARTATE AMINOTRANSFERASE 29 U/L (15-37); B-TYPE NATRIURETIC PEPTIDE 2301 PG/ML (0-125); BILIRUBIN,DIRECT 0.2 mg/dL (0.0-0.2); BILIRUBIN,TOTAL 0.6 mg/dL (0.2-1.0); CALCIUM, SERUM 9.1 mg/dL (8.5-10.1); CARBON DIOXIDE 30 mmol/L (21-32); CHLORIDE 101 mmol/L (98-107); CREATININE 1.2 mg/dL (0.6-1.3); POTASSIUM 4.4 mmol/L (3.5-5.1); SODIUM SERUM 139 mmol/L (136-145); TOTAL PROTEIN, SERUM 7.7 g/dL (6.4-8.2); UREA NITROGEN, BLOOD 15 mg/dL (7-18)
[2017-10-21 01:49] LABS: GLUCOSE 370 mg/dL (74-106)
--- NOTE | 2017-10-21 01:55 | NUR ---
PT IN BED IN NAD, PT STATES HE IS FEELING ALOT BETTER AND HIS PAIN LEVEL IS DOWN, MD MADE AWARE WILL CONTINUE TO RAMIRO.
[2017-10-21] MEDS ORDERED: INSULIN REGULAR, HUMAN 100 UNIT/ML 10 ML VIAL IV ONE (02:00)
[2017-10-21] MEDS ORDERED: INSULIN REGULAR, HUMAN 100 UNIT/ML 10 ML VIAL ONE (02:14)
--- NOTE | 2017-10-21 02:23 | NUR ---
PT A/OX4 BREATHING EFFORTLESSLY ON ROOM AIR, PT STATES HE SI FEELING BETTER AND IS PAIN FREE AT THIS TIME, MD MADE AWARE WILL CONTINUE TO MONITOR.
[2017-10-21] MEDS ORDERED: ACETAMINOPHEN 325 MG TABLET PO PRN (03:30)
[2017-10-21] MEDS ORDERED: BISACODYL SUPP (10 MG) 10 MG/SUPP.RECT SUPP.RECT RC PRN (03:30)
[2017-10-21] MEDS ORDERED: NA PHOS,M-B/NA PHOS,DI-BA 1 EA ENEMA RC PRN (03:30)
[2017-10-21] MEDS ORDERED: diphenhydrAMINE HCL 25 MG CAPSULE PO PRN (03:30)
[2017-10-21] MEDS ORDERED: NITROGLYCERIN 0.4 MG/TAB BOTTLE SL PRN (03:30)
[2017-10-21] MEDS ORDERED: TEMAZEPAM 15 MG CAPSULE PO PRN (04:00)
[2017-10-21] MEDS ORDERED: DEXTROSE 50%-WATER 50 ML DISP.SYRIN IV PRN (04:00)
[2017-10-21] MEDS ORDERED: LEVALBUTEROL HCL NEB 1.25 MG/0.5 ML VIAL.NEB NEB PRN (04:00)
[2017-10-21] MEDS ORDERED: ONDANSETRON HCL/PF 4 MG/2 ML VIAL IVP PRN (04:00)
--- NOTE | 2017-10-21 04:30 | NUR ---
MAKSIM RN INITIAL NOTE PT RECEIVED VIA GURNEY AND TRANSFERRED SAFELY TO BED IN ROOM 109. NO ACUTE DISTRESS NOTED. ARMENIAN SPEAKING WITH A LITTLE BIT OF ITALIAN. NO C/O CHEST PAIN OR DISCOMFORT NOTED. NEW IV INSERTED IN R HAND #22 CLEAN, DRY, FLUSHING WELL AND NO C/O PAIN. KEPT CLEAN AND DRY. CALL LIGHT WITHIN REACH. WILL CONTINUE TO MONITOR.
[2017-10-21 05:00] VITALS: BP 136/73
[2017-10-21] MEDS ORDERED: MAGNESIUM HYDROXIDE 30 ML UDC PO PRN (07:00)
--- NOTE | 2017-10-21 07:30 | NUR ---
MAKSIM RN INITIAL NOTES RECEIVED PATIENT IN BED, AOX2, PASHTO SPEAKING, NO SIGNS OF DISTRESS, NO CO OF CHEST PAIN, SR 61 HR ON TELE MONITOR, IV LFA 22G, CLEAN AND PATENT, DIAPER IN PLACE CLEAN AND DRY, BED IN LOW AND LOCKED POSITION CALL LIGHT WITHIN REACH, WILL CONTINUE TO MONITOR.
--- NOTE | 2017-10-21 07:31 | NUR ---
MAKSIM RN CLOSING NOTE PT REMAINED STABLE DURING SHIFT. NO ACUTE DISTRESS NOTED. ALL NEEDS ATTENDED TO PROMPTLY. KEPT CLEAN AND DRY. CALL LIGHT WITHIN REACH. WILL ENDORSE TO NEXT SHIFT FOR CONTINUITY OF CARE.
[2017-10-21 07:57] LABS: BASOPHILS % (AUTO) 0.6 % (0.0-2.0); EOSINOPHILS # (AUTO) 0.1 /CMM (0.0-0.7); EOSINOPHILS % (AUTO) 2.5 % (0.0-6.0); HEMATOCRIT 32 % (39-51); HEMOGLOBIN 10.4 g/dL (13.5-17.5); LYMPHOCYTES # (AUTO) 1.6 /CMM (0.8-4.8); LYMPHOCYTES % (AUTO) 27.7 % (20.0-44.0); MEAN CORPUSCULAR HEMOGLOBIN 26 PG (26.0-33.0); MEAN CORPUSCULAR HGB CONC 33 g/dl (31.0-36.0); MEAN CORPUSCULAR VOLUME 80 fL (80-96); MONOCYTES # (AUTO) 0.7 /CMM (0.1-1.30); MONOCYTES % (AUTO) 11.1 % (2.0-12.0); NEUTROPHILS # (AUTO) 3.4 /CMM (1.8-8.9); NEUTROPHILS % (AUTO) 58.1 % (43.0-81.0); PLATELET COUNT (AUTO) 241 /CMM (150-450); RDW COEFFICIENT OF VARIATION 16.9 (11.5-15.0); WHITE BLOOD COUNT (AUTO) 5.8 K/uL (4.3-11.0)
[2017-10-21 08:00] VITALS: BP 138/62
[2017-10-21] MEDS: BLOOD SUGAR DIAGNOSTIC 1 EACH STRIP IN SCH ×4 (08:02→21:12)
[2017-10-21] MEDS: INSULIN REGULAR, HUMAN 100 UNIT/ML 3 ML VIAL SQ PRN ×2 (08:05→11:27)
[2017-10-21 08:08] LABS: TROPONIN I 0.209 ng/mL (0.00-0.056)
[2017-10-21] MEDS: CLOPIDOGREL BISULFATE 75 MG TABLET PO SCH (08:19)
[2017-10-21] MEDS: APIXABAN 2.5 MG TABLET PO SCH ×2 (08:19→17:19)
[2017-10-21] MEDS: PANTOPRAZOLE 40 MG TABLET.DR PO SCH (08:20)
[2017-10-21] MEDS: FUROSEMIDE 20 MG/2 ML VIAL IV SCH ×2 (08:20→17:19)
[2017-10-21] MEDS: ASPIRIN EC 81 MG TABLET.DR PO SCH (08:20)
[2017-10-21] MEDS: LOSARTAN POTASSIUM 50 MG TABLET PO SCH ×2 (08:21→16:10)
[2017-10-21] MEDS: DIGOXIN 0.125 MG TABLET PO SCH (08:21)
[2017-10-21] MEDS: ATENOLOL 50 MG TABLET PO SCH (08:22)
[2017-10-21 08:24] LABS: ALANINE AMINOTRANSFERASE 23 U/L (12-78); ALBUMIN 3.3 g/dL (3.4-5.0); ALKALINE PHOSPHATASE 106 U/L (46-116); ASPARTATE AMINOTRANSFERASE 29 U/L (15-37); BILIRUBIN,TOTAL 0.6 mg/dL (0.2-1.0); CALCIUM, SERUM 8.9 mg/dL (8.5-10.1); CARBON DIOXIDE 30 mmol/L (21-32); CHLORIDE 103 mmol/L (98-107); CREATININE 1.4 mg/dL (0.6-1.3); GLUCOSE 253 mg/dL (74-106); MAGNESIUM 1.5 mg/dL (1.8-2.4); PHOSPHORUS 3.7 mg/dL (2.5-4.9); POTASSIUM 3.6 mmol/L (3.5-5.1); SODIUM SERUM 143 mmol/L (136-145); TOTAL PROTEIN, SERUM 7.2 g/dL (6.4-8.2); UREA NITROGEN, BLOOD 17 mg/dL (7-18)
[2017-10-21] MEDS: ISOSORBIDE MONONITRATE (30MG) 30 MG TAB.SR.24H PO SCH (08:24)
[2017-10-21 08:31] LABS: IRON, SERUM 24 ug/dl (50-175); TOTAL IRON BINDING CAPACITY 359 ug/dl (250-450)
[2017-10-21 08:33] LABS: CHOLESTEROL 150 mg/dL (<200); HDL CHOLESTEROL 35 mg/dL (40-60); LDL 106 mg/dL (0-99); THYROID STIMULATING HORMONE 11.041 uIU/mL (0.358-3.74); TRIGLYCERIDES 69 mg/dL (30-150); URIC ACID 4.1 mg/dL (2.6-7.2)
[2017-10-21] MEDS ORDERED: DILTIAZEM HCL CD 240 MG PO SCH (09:00)
[2017-10-21] MEDS ORDERED: DILTIAZEM HCL CD 120 MG PO SCH (09:00)
[2017-10-21 12:00] VITALS: BP 146/67
[2017-10-21 12:02] VITALS: BP 146/67
[2017-10-21] MEDS: AMIODARONE HCL 200 MG TABLET PO SCH ×2 (12:03→21:00)
--- NOTE | 2017-10-21 12:05 | NUR ---
CIGAR MAKING MACHINE SUPERVISOR NOTES PER DR BLANCA BERNABE TO HOLD FIRST AMIODARONE DOES AND GIVE THE LATER DOSE WHEN HR IS OVER 60.
[2017-10-21] MEDS: Magnesium 1GM/D5W 100ML PREMIX 100 ML IV SCH ×3 (12:06→14:07)
[2017-10-21 16:00] VITALS: BP 122/66
--- NOTE | 2017-10-21 18:49 | NUR ---
MASTER CONTROL OPERATOR END NOTES PATIENT RESTING IN BED, NO DISTRESS NOTED, NO CO OF PAIN DURING SHIFT, AT BEDSIDE, SB 55 HR ON TELE MONITOR, WILL ENDORSE TO APPLICATION ANALYST FOR CONTINUITY OF CARE.
--- NOTE | 2017-10-21 19:20 | NUR ---
LABEL OPERATOR OPENING NOTES RECEIVED REPORT FROM HELENA BARRIENTOS. PATIENT A/A/O X2-3, MOSTLY ROMANIAN SPEAKING BUT ABLE TO MAKE SOME NEEDS KNOWN. BREATHING EVEN & UNLABORED, SATING WELL ON ROOM AIR. DENIES SOB OR DIFFICULTY BREATHING. ON TELE SINUS BIANCA IN THE 50S. DENIES ANY CHEST PAIN OR DISCOMFORT @ THIS TIME. LEFT FOREARM IV #22 INTACT W/ DRESSING CDI, TKO. SKIN WARM, DRY & INTACT. SAFETY MEASURES IN PLACE W/ SIDE RAILS UP, BED LOCKED & IN LOWEST POSITION & CALL LIGHT WITHIN REACH. WILL CONTINUE TO MONITOR.
[2017-10-21 20:00] VITALS: BP 144/65
[2017-10-21] MEDS: ATORVASTATIN 10 MG TABLET PO SCH (21:12)
[2017-10-21] MEDS: *INSULIN REGULAR(HUMULIN R)HUM 100 UNIT/ML VIAL SQ PRN (21:17)
--- NOTE | 2017-10-21 21:30 | NUR ---
RN NOTES SPOKE TO MALLORY COLLIER REGARDING AMIODARONE DOSE DUE @ 2100. PATIENT NOTED W/ HR BELOW 60. PER MALLORY, HOLD DOSE NOW & TO CALL HIM IF HR INCREASES. WILL CONTINUE TO MONITOR CLOSELY.
[2017-10-21] MEDS ORDERED: Medication Not On Formulary EA (Melatonin 3 MG) PO SCH (22:00)
[2017-10-22] VITALS: BP 130/77
[2017-10-22 04:00] VITALS: BP 146/61
--- NOTE | 2017-10-22 06:09 | NUR ---
RN NOTES PATIENT REFUSED AM LAB DRAW. INFORMED OF IMPORTANCE OF LAB RESULTS ESPECIALLY TROPONIN LEVEL BUT PATIENT STILL REFUSED. WILL ENDORSE TO ONCOMING NURSE.
--- NOTE | 2017-10-22 07:29 | NUR ---
TRACTOR OPERATOR LASER LEVELING INITIAL NOTES PATIENT RECEIVED IN BED RESTING WITHOUT DISTRESS REPORTED THAT PATIENT IS A/A/O X2-3, MOSTLY SLOVAK SPEAKING BUT ABLE TO MAKE SOME NEEDS KNOWN. PATIENT BREATHING EVEN & UNLABORED. PATIENT DENIES PAIN, SOB OR DIFFICULTY BREATHING. PATIENT REMAINS BIANCA ON TELE PATIENT HAS LEFT FOREARM IV #22 INTACT W/ DRESSING CLEAN DRY AND INTACT SL. PATIENT SKIN REMAINS WARM, DRY & INTACT. SAFETY MEASURES IN PLACE W/ SIDE RAILS UP, BED LOCKED & IN LOWEST POSITION & CALL LIGHT WITHIN REACH. RN WILL CONTINUE TO MONITOR THROUGH THE DAY .
[2017-10-22 08:00] VITALS: BP 122/67
[2017-10-22] MEDS: FUROSEMIDE 20 MG/2 ML VIAL IV SCH ×2 (08:59→16:51)
[2017-10-22] MEDS: ASPIRIN EC 81 MG TABLET.DR PO SCH (08:59)
[2017-10-22] MEDS: DIGOXIN 0.125 MG TABLET PO SCH (09:00)
[2017-10-22] MEDS: AMIODARONE HCL 200 MG TABLET PO SCH ×3 (09:00→21:00)
[2017-10-22] MEDS: CLOPIDOGREL BISULFATE 75 MG TABLET PO SCH (09:00)
[2017-10-22] MEDS: ATENOLOL 50 MG TABLET PO SCH (09:00)
[2017-10-22] MEDS: APIXABAN 2.5 MG TABLET PO SCH ×2 (09:01→16:50)
[2017-10-22] MEDS: ISOSORBIDE MONONITRATE (30MG) 30 MG TAB.SR.24H PO SCH (09:01)
[2017-10-22] MEDS: PANTOPRAZOLE 40 MG TABLET.DR PO SCH (09:02)
[2017-10-22] MEDS: BLOOD SUGAR DIAGNOSTIC 1 EACH STRIP IN SCH ×4 (09:03→21:29)
[2017-10-22] MEDS: LOSARTAN POTASSIUM 50 MG TABLET PO SCH ×2 (09:03→16:51)
[2017-10-22] MEDS: INSULIN REGULAR, HUMAN 100 UNIT/ML 3 ML VIAL SQ PRN ×2 (09:11→16:58)
[2017-10-22 12:00] VITALS: BP 140/74
--- NOTE | 2017-10-22 12:28 | NUR ---
RN NOTE PATIENT HAS REFUSED MORNING LABS AND CGB X 3 , PATIENT STATES HE IS ANEMIC AND OLD AND REQUEST NOT TO HAVE US CONTINUE TO TAKE HIS BLOOD , PATIENT EDUCATED ON THE IMPORTANCE OF THE LABS ALONG WITH THE NEED TO ADHERE TO MEDICATION AND DRUG ADMINISTRATION CHECK MD BENJAMIN NOTIFIED, PATIENT MAY BE TRANSFERRED TODAY RN WILL CONTINUE TO FOLLOW
--- NOTE | 2017-10-22 12:42 | NUR ---
RN NOTE AMIODARONE NOT GIVEN DUE TO PATIENT DECREASED HR 56-58. RN WILL CONTINUE TO FOLLOW NO COMPLAINTS OF CHEST PAIN OR DIZZINESS AT THIS TIME
[2017-10-22] MEDS ORDERED: diphenhydrAMINE HCL/ZINC ACET CREAM 28.3 GM TUBE TP PRN (13:00)
[2017-10-22 16:00] VITALS: BP 114/62
[2017-10-22 17:24] LABS: HEMATOCRIT 31 % (39-51); HEMOGLOBIN 10.3 g/dL (13.5-17.5); MEAN CORPUSCULAR HEMOGLOBIN 26 PG (26.0-33.0); MEAN CORPUSCULAR HGB CONC 33 g/dl (31.0-36.0); MEAN CORPUSCULAR VOLUME 80 fL (80-96); PLATELET COUNT (AUTO) 240 /CMM (150-450); RDW COEFFICIENT OF VARIATION 16.4 (11.5-15.0); RED BLOOD CELL COUNT(AUTO) 3.91 MIL/uL (4.5-6.0); WHITE BLOOD COUNT (AUTO) 5.4 K/uL (4.3-11.0)
[2017-10-22 17:44] LABS: TROPONIN I 0.096 ng/mL (0.00-0.056)
[2017-10-22 17:46] LABS: ALANINE AMINOTRANSFERASE 30 U/L (12-78); ALBUMIN 3.2 g/dL (3.4-5.0); ALKALINE PHOSPHATASE 102 U/L (46-116); ASPARTATE AMINOTRANSFERASE 33 U/L (15-37); BILIRUBIN,TOTAL 0.7 mg/dL (0.2-1.0); CALCIUM, SERUM 8.7 mg/dL (8.5-10.1); CARBON DIOXIDE 30 mmol/L (21-32); CHLORIDE 105 mmol/L (98-107); CREATININE 1.3 mg/dL (0.6-1.3); GLUCOSE 227 mg/dL (74-106); MAGNESIUM 1.9 mg/dL (1.8-2.4); PHOSPHORUS 3.5 mg/dL (2.5-4.9); POTASSIUM 3.5 mmol/L (3.5-5.1); SODIUM SERUM 142 mmol/L (136-145); TOTAL PROTEIN, SERUM 7.1 g/dL (6.4-8.2); UREA NITROGEN, BLOOD 18 mg/dL (7-18)
[2017-10-22 18:06] LABS: LYMPHOCYTES % (MANUAL) 18 % (16-48); MONOCYTES % (MANUAL) 9 % (0-11.0); NEUTROPHILS % (MANUAL) 73 (42-76)
--- NOTE | 2017-10-22 18:48 | NUR ---
RN CLOSING NOTE PT REMAINED STABLE THROUGHOUT THE SHIFT. NO ACUTE DISTRESS NOTED. MULTIPLE WET DIAPERS. ALL NEEDS ATTENDED TO .PT KEPT CLEAN AND DRY. CALL LIGHT WITHIN REACH. RN SPOKE WITH JONNIE SPRING AND PROVIDED MD RIOS OFFICE NUMBER PER REQUEST FOR FURTHER QUESTIONS IN REGARDS TO THE PATIENT PLAN OF CARE. RN WILL ENDORSE TO PM SHIFT FOR CONTINUITY OF CARE.
--- NOTE | 2017-10-22 19:25 | NUR ---
EYE GLASS FRAME POLISHER OPENING NOTES RECEIVED REPORT FROM ROBERT BARRIENTOS. PATIENT A/A/O X2-3, MOSTLY HEBREW SPEAKING BUT ABLE TO MAKE SOME NEEDS KNOWN. BREATHING EVEN & UNLABORED, SATING WELL ON ROOM AIR. DENIES SOB OR DIFFICULTY BREATHING. ON TELE SINUS BIANCA IN THE 50S. DENIES ANY CHEST PAIN OR DISCOMFORT @ THIS TIME. LEFT HAND IV #22 INTACT W/ DRESSING CDI, SALINE LOCKED. SKIN WARM, DRY & INTACT. SAFETY MEASURES IN PLACE W/ SIDE RAILS UP, BED LOCKED & IN LOWEST POSITION & CALL LIGHT WITHIN REACH. WILL CONTINUE TO MONITOR.
[2017-10-22 20:00] VITALS: BP 135/79
[2017-10-22] MEDS: ATORVASTATIN 10 MG TABLET PO SCH (21:14)
[2017-10-22] MEDS: *INSULIN REGULAR(HUMULIN R)HUM 100 UNIT/ML VIAL SQ PRN (21:29)
[2017-10-23] VITALS: BP 149/73
[2017-10-23 04:00] VITALS: BP 138/68
--- NOTE | 2017-10-23 06:40 | NUR ---
RN NOTES PIV LINE ACCIDENTALLY PULLED OUT. NEW IV SITE STARTED ON RIGHT HAND GAUGE 20 W/ GOOD BLOOD RETURN. NO SIGNS OF INFILTRATION NOTED. PATIENT TOLERATED PROCEDURE WELL.
--- NOTE | 2017-10-23 07:25 | NUR ---
DREDGE RUNNER NOTE: PATIENT IN BED, AWAKE AND ABLE TO MAKE NEEDS KNOWN. RESPIRATION EVEN AND UNLABORED. NOT ON ANY DISTRESS. DENIED PAIN AT THIS TIME. (R) HAND IV LINE PATENT AND INTACT. ON FINANCIAL MARKET DEALER, SR=60. BED ALARM AND LOCKED AT ALL TIMES. CALL LIGHT WITHIN REACH.
[2017-10-23 08:00] VITALS: BP 126/62
[2017-10-23] MEDS: BLOOD SUGAR DIAGNOSTIC 1 EACH STRIP IN SCH ×4 (08:04→22:26)
[2017-10-23] MEDS: INSULIN REGULAR, HUMAN 100 UNIT/ML 3 ML VIAL SQ PRN ×3 (08:34→17:44)
[2017-10-23] MEDS: CLOPIDOGREL BISULFATE 75 MG TABLET PO SCH (08:43)
[2017-10-23] MEDS: PANTOPRAZOLE 40 MG TABLET.DR PO SCH (08:43)
[2017-10-23] MEDS: ASPIRIN EC 81 MG TABLET.DR PO SCH (08:43)
[2017-10-23] MEDS: FUROSEMIDE 20 MG/2 ML VIAL IV SCH ×2 (08:45→17:22)
[2017-10-23] MEDS: APIXABAN 2.5 MG TABLET PO SCH ×2 (08:45→17:22)
[2017-10-23] MEDS: ISOSORBIDE MONONITRATE (30MG) 30 MG TAB.SR.24H PO SCH (08:47)
[2017-10-23] MEDS: LOSARTAN POTASSIUM 50 MG TABLET PO SCH ×2 (08:47→17:22)
[2017-10-23] MEDS: AMIODARONE HCL 200 MG TABLET PO SCH ×3 (08:47→22:27)
[2017-10-23] MEDS ORDERED: AMIO200T7 PO (10:59)
--- NOTE | 2017-10-23 13:00 | NUR ---
RN M/S NOTE: CALLED AND SPOKE W/ KAIDEN, PLUGGER WORKER AND INFORMED HIM ABOUT THE PATIENT'S DISCHARGE ORDER. PER CHARGE NURSE, DR. BENJAMIN SAID THAT PATIENT WILL GO HOME BY TOMORROW AND PLUGGER WORKER IS AWARE ABOUT IT.
[2017-10-23 16:00] VITALS: BP 133/63
--- NOTE | 2017-10-23 19:08 | NUR ---
RN M/S NOTE: PATIENT IN BED, AWAKE AND ABLE TO MAKE NEEDS KNOWN. RESPIRATION EVEN AND UNLABORED. NOT ON ANY DISTRESS. DENIED PAIN AT THIS TIME. (R) HAND IV LINE PATENT AND INTACT. BED ALARM AND LOCKED AT ALL TIMES. CALL LIGHT WITHIN REACH. REPORT TO BE GIVEN TO PM SHIFT NURSE FOR CONTINUITY OF CARE.
[2017-10-23 20:00] VITALS: BP 130/70
--- NOTE | 2017-10-23 20:30 | NUR ---
MS1/RN RECEIVE PATIENT APPEAR SLEEPING, EASILY AROUSABLE, APPEAR COMFORTABLE, BREATHING EVEN AND UNLABORED, CALL LIGHT IN REACH. WILL MONITOR.
--- NOTE | 2017-10-23 22:25 | NUR ---
MS1/RN PATIENT IS AWAKE, ALERT AND ORIENTED. DUE MEDS WERE GIVEN. TOLERATED.
[2017-10-23] MEDS: ATORVASTATIN 10 MG TABLET PO SCH (22:27)
[2017-10-23] MEDS: *INSULIN REGULAR(HUMULIN R)HUM 100 UNIT/ML VIAL SQ PRN (22:28)
--- NOTE | 2017-10-24 00:41 | NUR ---
MS1/RN PATIENT IS SLEEPING AT THIS TIME, AROUSABLE, APPEAR COMFORTABLE, NO DISTRESS NOTED, CALL LIGHT IN REACH. WILL CONTINUE TO MONITOR.
[2017-10-24 04:00] VITALS: BP 121/73
[2017-10-24 05:12] VITALS: BP 121/73
--- NOTE | 2017-10-24 06:19 | NUR ---
MS1/RN PATIENT IS STILL SLEEPING, AROUSABLE, NO SIGNS OF DISTRESS NOTED. ALL NEEDS ATTENDED AT THIS TIME, WILL CONTINUE TO MONITOR.
[2017-10-24] MEDS: BLOOD SUGAR DIAGNOSTIC 1 EACH STRIP IN SCH ×2 (06:41→12:39)
[2017-10-24] MEDS: INSULIN REGULAR, HUMAN 100 UNIT/ML 3 ML VIAL SQ PRN ×2 (06:45→12:48)
[2017-10-24 08:00] VITALS: BP_SYST 130; BP_DIAS 65; BP_DIAS 68
[2017-10-24] MEDS: AMIODARONE HCL 200 MG TABLET PO SCH ×2 (08:28→12:44)
[2017-10-24] MEDS: CLOPIDOGREL BISULFATE 75 MG TABLET PO SCH (08:29)
[2017-10-24] MEDS: ASPIRIN EC 81 MG TABLET.DR PO SCH (08:29)
[2017-10-24] MEDS: PANTOPRAZOLE 40 MG TABLET.DR PO SCH (08:29)
[2017-10-24] MEDS: LOSARTAN POTASSIUM 50 MG TABLET PO SCH (08:29)
[2017-10-24] MEDS: FUROSEMIDE 20 MG/2 ML VIAL IV SCH (08:29)
[2017-10-24] MEDS: ISOSORBIDE MONONITRATE (30MG) 30 MG TAB.SR.24H PO SCH (08:29)
[2017-10-24] MEDS: APIXABAN 2.5 MG TABLET PO SCH (08:30)
[2017-10-24 12:44] VITALS: BP 144/77
--- NOTE | 2017-10-24 14:15 | NUR ---
RN NOTE PT DISCHARGED IN STABLE CONDITION TO [facility], REPORT GIVEN TO RICHIE, , AT BEDSIDE, EXIT CARE DONE, DISCHARGE INSTRUCTIONS GIVEN TO PT AND PT'S , IV REMOVED, BELONGINGS LIST SIGNED, BELONGINGS PROVIDED TO PT, PT LEFT VIA AMBULANCE.
== END 2017-10-24 14:48 | DRG 280 ==
LOC: ER 00:55 → TELE-TD 03:05 → TELE1 09:40 → MEDSG1 10-23 11:33
PROVIDERS: ADMIT Internal Medicine; ATTEND Internal Medicine
DX: I21.A1 Myocardial infarction type 2 (principal); N17.0 Acute kidney failure with tubular necrosis; E11.65 Type 2 diabetes mellitus with hyperglycemia; E11.22 Type 2 diabetes mellitus with diabetic chronic kidney disease; R53.2 Functional quadriplegia; I48.92 Unspecified atrial flutter; I48.0 Paroxysmal atrial fibrillation; E83.42 Hypomagnesemia; D63.8 Anemia in other chronic diseases classified elsewhere; D64.9 Anemia, unspecified; E03.9 Hypothyroidism, unspecified; E78.5 Hyperlipidemia, unspecified; N18.9 Chronic kidney disease, unspecified; I13.10 Hypertensive heart and chronic kidney disease without heart failure, with stage 1 through stage 4 chronic kidney disease, or unspecified chronic kidney disease; K21.9 Gastro-esophageal reflux disease without esophagitis; I25.10 Atherosclerotic heart disease of native coronary artery without angina pectoris; Z95.1 Presence of aortocoronary bypass graft; Z91.19 Patient's noncompliance with other medical treatment and regimen; Z79.82 Long term (current) use of aspirin; Z79.01 Long term (current) use of anticoagulants; Z74.01 Bed confinement status; K59.00 Constipation, unspecified; I25.2 Old myocardial infarction; F41.9 Anxiety disorder, unspecified; F32.9 Major depressive disorder, single episode, unspecified; F03.90 Unspecified dementia, unspecified severity, without behavioral disturbance, psychotic disturbance, mood disturbance, and anxiety; I70.0 Atherosclerosis of aorta; E66.3 Overweight
CPT/HCPCS: 36415; 71045-TC; 80048-TC; 80053-TC; 80061-TC; 80076-TC; 80162-TC; 82962-TC; 83540-TC; 83735-TC; 83880; 84100-TC; 84439-TC; 84443-TC; 84484-TC; 84550-TC; 85025-TC; 85378-TC; 85730-TC; 87081-TC; 97110-TC; 97530-TC; A4606; J1650; J1815; J1940; J2270; J2405; J3475; J3490; J7030; Q0163; Z7610

== ENCOUNTER 2018-01-09 01:52 | Inpatient (IN) | payer MEDICARE, OTHER ==
[~2018-01-09] VITALS: Ht 167.6 cm; Wt 78.9 kg
[~2018-01-09 01:52] MED LIST changes: +ACET325T53 PO; +AMIO200T7 PO; +APIX2.5T PO; +ATOR10TA PO; +BISA10SU61 RC; +DIGO125T PO; +DIPH25CA83 PO; +FURO40TA5 PO; +LOSA50TA21 PO; +MAGN2400 PO; +MELA3TAB PO; -METF500T4 PO; -MULT-1168 PO; +NA P133E RC; +NITR0.4T48 SL; +RANI150T8 PO; -RANO10003 PO; -ROSU10TA PO; -SITA100T PO
[2018-01-09 02:19] LABS: BASOPHILS % (AUTO) 0.1 % (0.0-2.0); EOSINOPHILS % (AUTO) 0.4 % (0.0-6.0); HEMATOCRIT 32 % (39-51); HEMOGLOBIN 10.3 g/dL (13.5-17.5); LYMPHOCYTES # (AUTO) 0.9 /CMM (0.8-4.8); LYMPHOCYTES % (AUTO) 9.9 % (20.0-44.0); MEAN CORPUSCULAR HGB CONC 32 g/dl (31.0-36.0); MEAN CORPUSCULAR VOLUME 79 fL (80-96); MONOCYTES # (AUTO) 0.8 /CMM (0.1-1.30); MONOCYTES % (AUTO) 9.1 % (2.0-12.0); NEUTROPHILS # (AUTO) 7.3 /CMM (1.8-8.9); NEUTROPHILS % (AUTO) 80.5 % (43.0-81.0); PLATELET COUNT (AUTO) 320 /CMM (150-450); RDW COEFFICIENT OF VARIATION 19.7 (11.5-15.0)
[2018-01-09] MEDS ORDERED: ONDANSETRON HCL/PF 4 MG/2 ML VIAL ONE (02:20)
[2018-01-09] MEDS ORDERED: MORPHINE SULFATE INJ 4 MG/ML DISP.SYRIN ONE (02:20)
[2018-01-09 02:27] LABS: CALCIUM, SERUM 8.6 mg/dL (8.5-10.1); CARBON DIOXIDE 28 mmol/L (21-32); CHLORIDE 103 mmol/L (98-107); CREATININE 0.8 mg/dL (0.6-1.3); GLUCOSE 194 mg/dL (74-106); POTASSIUM 3.3 mmol/L (3.5-5.1); SODIUM SERUM 139 mmol/L (136-145); UREA NITROGEN, BLOOD 9 mg/dL (7-18)
[2018-01-09] MEDS ORDERED: ONDANSETRON HCL/PF 4 MG/2 ML VIAL IVP ONE (02:30)
[2018-01-09] MEDS ORDERED: MORPHINE SULFATE INJ 2 MG/ML DISP.SYRIN IV ONE (02:30)
[2018-01-09 02:32] LABS: D-DIMER 0.67 mg/L(FEU (0.17-0.50); INR 1.06 (0.87-1.13)
[2018-01-09 02:37] LABS: TROPONIN I 0.129 ng/mL (0.00-0.056)
[2018-01-09] MEDS ORDERED: IV NS 0.9% 500 ML IV ONE (02:38)
[2018-01-09] MEDS ORDERED: CT SWABBABLE VALVE TRANS SET 1 EA INFUS.SET MC ONE (02:38)
[2018-01-09] MEDS ORDERED: IOHEXOL-350 100 ML VIAL IV ONE (02:38)
[2018-01-09 04:25] VITALS: BP 165/76
[2018-01-09] MEDS ORDERED: MAGNESIUM HYDROXIDE 30 ML UDC PO PRN (04:30)
[2018-01-09] MEDS ORDERED: HYDROCODONE/APAP 5/325MG 1 EACH TABLET PO PRN (04:30)
[2018-01-09] MEDS ORDERED: diphenhydrAMINE HCL 25 MG CAPSULE PO PRN (04:30)
[2018-01-09] MEDS ORDERED: ONDANSETRON HCL/PF 4 MG/2 ML VIAL IVP PRN (04:30)
[2018-01-09] MEDS ORDERED: Z GUARD REMEDY 2 OZ OINT TP PRN (04:30)
[2018-01-09] MEDS ORDERED: MAG HYDROX/AL HYDROX/SIMETH 30 ML UDC PO PRN (04:30)
[2018-01-09] MEDS ORDERED: MORPHINE SULFATE INJ 2 MG/ML DISP.SYRIN IV PRN (04:30)
[2018-01-09] MEDS ORDERED: NITROGLYCERIN 0.4 MG/TAB BOTTLE SL PRN (04:30)
[2018-01-09] MEDS ORDERED: BISACODYL SUPP (10 MG) 10 MG/SUPP.RECT SUPP.RECT RC PRN (04:30)
[2018-01-09] MEDS ORDERED: ACETAMINOPHEN 325 MG TABLET PO PRN (04:30)
[2018-01-09] MEDS ORDERED: MORPHINE SULFATE INJ 4 MG/ML DISP.SYRIN IV PRN (04:30)
[2018-01-09 08:00] VITALS: BP 150/88
[2018-01-09] MEDS: VALSARTAN 80 MG TABLET PO SCH (08:43)
[2018-01-09] MEDS: FAMOTIDINE (20 MG) 20 MG TABLET PO SCH ×2 (08:44→20:37)
[2018-01-09] MEDS: CARVEDILOL 12.5 MG TABLET PO SCH ×2 (08:44→20:41)
[2018-01-09] MEDS: AMIODARONE HCL 200 MG TABLET PO SCH (08:45)
[2018-01-09] MEDS: ASPIRIN EC 81 MG TABLET.DR PO SCH (08:45)
[2018-01-09] MEDS: FUROSEMIDE 40 MG TABLET PO SCH (08:45)
[2018-01-09] MEDS: ISOSORBIDE MONONITRATE (30MG) 30 MG TAB.SR.24H PO SCH (08:45)
[2018-01-09] MEDS: CLOPIDOGREL BISULFATE 75 MG TABLET PO SCH (08:45)
[2018-01-09] MEDS: APIXABAN 2.5 MG TABLET PO SCH ×2 (08:46→16:41)
[2018-01-09] MEDS ORDERED: ATENOLOL 50 MG TABLET PO SCH (09:00)
[2018-01-09] MEDS ORDERED: DIGOXIN 0.125 MG TABLET PO SCH (09:00)
[2018-01-09] MEDS ORDERED: AMIODARONE HCL 200 MG TABLET PO SCH (09:00)
[2018-01-09] MEDS ORDERED: LOSARTAN POTASSIUM 50 MG TABLET PO SCH (09:00)
[2018-01-09 09:32] LABS: THYROID STIMULATING HORMONE 9.37 uIU/mL (0.358-3.74)
[2018-01-09 10:00] VITALS: BP 150/88
[2018-01-09] MEDS ORDERED: DEXTROSE 50%-WATER 50 ML DISP.SYRIN IV PRN (10:30)
[2018-01-09] MEDS ORDERED: POTASSIUM CHLORIDE 10 MEQ TABLET.SA PO ONE (11:00)
[2018-01-09] MEDS: BLOOD SUGAR DIAGNOSTIC 1 EACH STRIP VI SCH ×3 (11:40→22:01)
[2018-01-09] MEDS: INSULIN REGULAR, HUMAN 100 UNIT/ML 3 ML VIAL SQ PRN (11:41)
[2018-01-09 12:00] VITALS: BP 131/78
[2018-01-09] MEDS: DIGOXIN 0.125 MG TABLET PO SCH (13:31)
[2018-01-09 16:00] VITALS: BP 138/78
[2018-01-09] MEDS: *INSULIN REGULAR(HUMULIN R)HUM 100 UNIT/ML VIAL SQ PRN ×2 (17:07→22:04)
[2018-01-09 20:00] VITALS: BP_SYST 124; BP_SYST 131; BP_DIAS 68; BP_DIAS 69
[2018-01-09] MEDS ORDERED: Medication Not On Formulary EA (Melatonin 3 MG) PO SCH (22:00)
[2018-01-09] MEDS: ATORVASTATIN 10 MG TABLET PO SCH (22:04)
[2018-01-10] VITALS: BP 122/65
[2018-01-10 04:00] VITALS: BP 129/66
[2018-01-10 06:40] LABS: EOSINOPHILS % (AUTO) 1.7 % (0.0-6.0); HEMATOCRIT 31 % (39-51); LYMPHOCYTES # (AUTO) 1.4 /CMM (0.8-4.8); LYMPHOCYTES % (AUTO) 17.1 % (20.0-44.0); MEAN CORPUSCULAR HGB CONC 32 g/dl (31.0-36.0); MEAN CORPUSCULAR VOLUME 79 fL (80-96); MONOCYTES # (AUTO) 0.7 /CMM (0.1-1.30); MONOCYTES % (AUTO) 8.6 % (2.0-12.0); NEUTROPHILS # (AUTO) 5.7 /CMM (1.8-8.9); NEUTROPHILS % (AUTO) 72.6 % (43.0-81.0); PLATELET COUNT (AUTO) 270 /CMM (150-450); RDW COEFFICIENT OF VARIATION 19.5 (11.5-15.0); RED BLOOD CELL COUNT(AUTO) 3.91 MIL/uL (4.5-6.0); WHITE BLOOD COUNT (AUTO) 7.9 K/uL (4.3-11.0)
[2018-01-10] MEDS: INSULIN REGULAR, HUMAN 100 UNIT/ML 3 ML VIAL SQ PRN ×3 (06:45→17:39)
[2018-01-10 06:46] LABS: ALANINE AMINOTRANSFERASE 27 U/L (12-78); ALBUMIN 2.6 g/dL (3.4-5.0); ALKALINE PHOSPHATASE 129 U/L (46-116); ASPARTATE AMINOTRANSFERASE 27 U/L (15-37); BILIRUBIN,TOTAL 0.6 mg/dL (0.2-1.0); CALCIUM, SERUM 8.4 mg/dL (8.5-10.1); CARBON DIOXIDE 31 mmol/L (21-32); CHLORIDE 103 mmol/L (98-107); GLUCOSE 151 mg/dL (74-106); MAGNESIUM 1.7 mg/dL (1.8-2.4); PHOSPHORUS 3.5 mg/dL (2.5-4.9); POTASSIUM 3.8 mmol/L (3.5-5.1); SODIUM SERUM 139 mmol/L (136-145); TOTAL PROTEIN, SERUM 6.3 g/dL (6.4-8.2); UREA NITROGEN, BLOOD 14 mg/dL (7-18)
[2018-01-10] MEDS: BLOOD SUGAR DIAGNOSTIC 1 EACH STRIP VI SCH ×4 (06:47→21:22)
[2018-01-10 06:56] LABS: TROPONIN I 0.547 ng/mL (0.00-0.056)
[2018-01-10 06:58] LABS: CHOLESTEROL 144 mg/dL (<200); HDL CHOLESTEROL 42 mg/dL (40-60); LDL 101 mg/dL (0-99); THYROID STIMULATING HORMONE 6.416 uIU/mL (0.358-3.74); TRIGLYCERIDES 89 mg/dL (30-150)
[2018-01-10 08:00] VITALS: BP 128/65
[2018-01-10] MEDS: FAMOTIDINE (20 MG) 20 MG TABLET PO SCH ×2 (08:14→20:21)
[2018-01-10] MEDS: FUROSEMIDE 40 MG TABLET PO SCH (08:14)
[2018-01-10] MEDS: ASPIRIN EC 81 MG TABLET.DR PO SCH (08:14)
[2018-01-10] MEDS: VALSARTAN 80 MG TABLET PO SCH (08:16)
[2018-01-10] MEDS: CARVEDILOL 12.5 MG TABLET PO SCH ×2 (08:16→20:21)
[2018-01-10] MEDS: AMIODARONE HCL 200 MG TABLET PO SCH (08:17)
[2018-01-10] MEDS: APIXABAN 2.5 MG TABLET PO SCH ×2 (08:17→16:03)
[2018-01-10] MEDS: CLOPIDOGREL BISULFATE 75 MG TABLET PO SCH (09:00)
[2018-01-10] MEDS: ISOSORBIDE MONONITRATE (30MG) 30 MG TAB.SR.24H PO SCH (09:00)
[2018-01-10] MEDS ORDERED: ENOXAPARIN SODIUM 80 MG/0.8 ML DISP.SYRIN SQ SCH (09:00)
[2018-01-10] MEDS: AMLODIPINE BESYLATE 5 MG TABLET PO SCH (10:00)
[2018-01-10] MEDS: Magnesium 1GM/D5W 100ML PREMIX 100 ML IV SCH ×2 (10:22→12:18)
[2018-01-10 12:00] VITALS: BP 132/66
[2018-01-10] MEDS: DIGOXIN 0.125 MG TABLET PO SCH (12:18)
[2018-01-10 16:00] VITALS: BP 149/66
[2018-01-10 20:00] VITALS: BP 148/85
[2018-01-10] MEDS: ATORVASTATIN 10 MG TABLET PO SCH (21:19)
[2018-01-10] MEDS: *INSULIN REGULAR(HUMULIN R)HUM 100 UNIT/ML VIAL SQ PRN (21:24)
[2018-01-11] MEDS: INSULIN REGULAR, HUMAN 100 UNIT/ML 3 ML VIAL SQ PRN ×3 (06:23→17:14)
[2018-01-11] MEDS: BLOOD SUGAR DIAGNOSTIC 1 EACH STRIP VI SCH ×4 (06:30→21:08)
[2018-01-11 08:00] VITALS: BP 152/75
[2018-01-11] MEDS: ASPIRIN EC 81 MG TABLET.DR PO SCH (09:55)
[2018-01-11] MEDS: VALSARTAN 80 MG TABLET PO SCH (09:55)
[2018-01-11] MEDS: FUROSEMIDE 40 MG TABLET PO SCH (09:56)
[2018-01-11] MEDS: ISOSORBIDE MONONITRATE (30MG) 30 MG TAB.SR.24H PO SCH (09:56)
[2018-01-11] MEDS: CARVEDILOL 12.5 MG TABLET PO SCH ×2 (09:56→21:08)
[2018-01-11] MEDS: AMLODIPINE BESYLATE 5 MG TABLET PO SCH (09:57)
[2018-01-11] MEDS: FAMOTIDINE (20 MG) 20 MG TABLET PO SCH ×2 (09:58→21:08)
[2018-01-11] MEDS: CLOPIDOGREL BISULFATE 75 MG TABLET PO SCH (09:58)
[2018-01-11] MEDS: AMIODARONE HCL 200 MG TABLET PO SCH (09:58)
[2018-01-11] MEDS: APIXABAN 2.5 MG TABLET PO SCH ×2 (09:59→17:03)
[2018-01-11] MEDS: DIGOXIN 0.125 MG TABLET PO SCH (12:30)
[2018-01-11 12:31] VITALS: BP 128/72
[2018-01-11 16:00] VITALS: BP 130/70
[2018-01-11 20:00] VITALS: BP 137/72
[2018-01-11] MEDS: ATORVASTATIN 10 MG TABLET PO SCH (21:08)
[2018-01-11] MEDS: *INSULIN REGULAR(HUMULIN R)HUM 100 UNIT/ML VIAL SQ PRN (21:11)
[2018-01-12] MEDS: BLOOD SUGAR DIAGNOSTIC 1 EACH STRIP VI SCH ×4 (06:05→22:09)
[2018-01-12] MEDS: INSULIN REGULAR, HUMAN 100 UNIT/ML 3 ML VIAL SQ PRN ×3 (06:06→17:01)
[2018-01-12 07:46] VITALS: BP 133/68
[2018-01-12 08:10] VITALS: BP 133/68
[2018-01-12] MEDS: ASPIRIN EC 81 MG TABLET.DR PO SCH (08:30)
[2018-01-12] MEDS: AMLODIPINE BESYLATE 5 MG TABLET PO SCH (08:30)
[2018-01-12] MEDS: CLOPIDOGREL BISULFATE 75 MG TABLET PO SCH (08:30)
[2018-01-12] MEDS: FUROSEMIDE 40 MG TABLET PO SCH (08:30)
[2018-01-12] MEDS: APIXABAN 2.5 MG TABLET PO SCH ×2 (08:30→16:57)
[2018-01-12] MEDS: FAMOTIDINE (20 MG) 20 MG TABLET PO SCH ×2 (08:30→21:43)
[2018-01-12] MEDS: VALSARTAN 80 MG TABLET PO SCH (08:31)
[2018-01-12] MEDS: AMIODARONE HCL 200 MG TABLET PO SCH (08:31)
[2018-01-12] MEDS: ISOSORBIDE MONONITRATE (30MG) 30 MG TAB.SR.24H PO SCH (08:31)
[2018-01-12] MEDS: CARVEDILOL 12.5 MG TABLET PO SCH ×2 (08:32→21:45)
[2018-01-12] MEDS: SERTRALINE HCL 25 MG TABLET PO SCH (12:08)
[2018-01-12] MEDS: DIGOXIN 0.125 MG TABLET PO SCH (12:09)
[2018-01-12 16:15] VITALS: BP 134/74
[2018-01-12 16:22] VITALS: BP 134/74
[2018-01-12 20:00] VITALS: BP 149/78
[2018-01-12] MEDS: ATORVASTATIN 10 MG TABLET PO SCH (21:42)
[2018-01-12] MEDS: *INSULIN REGULAR(HUMULIN R)HUM 100 UNIT/ML VIAL SQ PRN (22:16)
[2018-01-13] MEDS: BLOOD SUGAR DIAGNOSTIC 1 EACH STRIP VI SCH ×4 (06:32→21:33)
[2018-01-13] MEDS: INSULIN REGULAR, HUMAN 100 UNIT/ML 3 ML VIAL SQ PRN ×3 (06:36→17:30)
[2018-01-13 07:50] VITALS: BP 139/68
[2018-01-13 08:00] VITALS: BP 139/68
[2018-01-13] MEDS: ASPIRIN EC 81 MG TABLET.DR PO SCH (08:19)
[2018-01-13] MEDS: APIXABAN 2.5 MG TABLET PO SCH ×2 (08:19→17:28)
[2018-01-13] MEDS: FUROSEMIDE 40 MG TABLET PO SCH (08:19)
[2018-01-13] MEDS: FAMOTIDINE (20 MG) 20 MG TABLET PO SCH ×2 (08:19→21:32)
[2018-01-13] MEDS: CLOPIDOGREL BISULFATE 75 MG TABLET PO SCH (08:19)
[2018-01-13] MEDS: AMLODIPINE BESYLATE 5 MG TABLET PO SCH (08:20)
[2018-01-13] MEDS: AMIODARONE HCL 200 MG TABLET PO SCH (08:20)
[2018-01-13] MEDS: ISOSORBIDE MONONITRATE (30MG) 30 MG TAB.SR.24H PO SCH (08:20)
[2018-01-13] MEDS: CARVEDILOL 12.5 MG TABLET PO SCH ×2 (08:21→21:32)
[2018-01-13] MEDS: VALSARTAN 80 MG TABLET PO SCH (08:21)
[2018-01-13] MEDS: SERTRALINE HCL 25 MG TABLET PO SCH (12:18)
[2018-01-13] MEDS: DIGOXIN 0.125 MG TABLET PO SCH (12:21)
[2018-01-13 15:46] VITALS: BP 144/74
[2018-01-13 16:00] VITALS: BP 144/74
[2018-01-13 20:00] VITALS: BP 156/74
[2018-01-13] MEDS: ATORVASTATIN 10 MG TABLET PO SCH (21:32)
[2018-01-13] MEDS: *INSULIN REGULAR(HUMULIN R)HUM 100 UNIT/ML VIAL SQ PRN (21:40)
[2018-01-14] MEDS: BLOOD SUGAR DIAGNOSTIC 1 EACH STRIP VI SCH ×3 (05:29→17:55)
[2018-01-14] MEDS: INSULIN REGULAR, HUMAN 100 UNIT/ML 3 ML VIAL SQ PRN ×3 (05:38→18:00)
[2018-01-14 06:12] VITALS: BP 135/69
[2018-01-14 08:00] VITALS: BP 147/73
[2018-01-14] MEDS: AMIODARONE HCL 200 MG TABLET PO SCH (08:58)
[2018-01-14] MEDS: ASPIRIN EC 81 MG TABLET.DR PO SCH (08:58)
[2018-01-14] MEDS: CARVEDILOL 12.5 MG TABLET PO SCH ×2 (08:59→21:30)
[2018-01-14] MEDS: VALSARTAN 80 MG TABLET PO SCH (08:59)
[2018-01-14] MEDS: APIXABAN 2.5 MG TABLET PO SCH ×2 (08:59→17:55)
[2018-01-14] MEDS: FUROSEMIDE 40 MG TABLET PO SCH (08:59)
[2018-01-14] MEDS: ISOSORBIDE MONONITRATE (30MG) 30 MG TAB.SR.24H PO SCH (08:59)
[2018-01-14] MEDS: AMLODIPINE BESYLATE 5 MG TABLET PO SCH (09:00)
[2018-01-14] MEDS: FAMOTIDINE (20 MG) 20 MG TABLET PO SCH ×2 (09:00→20:47)
[2018-01-14] MEDS: CLOPIDOGREL BISULFATE 75 MG TABLET PO SCH (09:00)
[2018-01-14] MEDS: SERTRALINE HCL 25 MG TABLET PO SCH (12:36)
[2018-01-14] MEDS: DIGOXIN 0.125 MG TABLET PO SCH (12:37)
[2018-01-14 16:00] VITALS: BP 140/81
[2018-01-14 21:30] VITALS: BP 154/76
[2018-01-14] MEDS: ATORVASTATIN 10 MG TABLET PO SCH (21:31)
== END 2018-01-14 21:50 | DRG 280 ==
LOC: ER 01:57 → TELE 03:55 → MED 01-10 10:09 → MEDSG2 01-12 06:03
PROVIDERS: ADMIT Nurse Practitioner Acute Care; ATTEND Nurse Practitioner Acute Care
DX: I21.A1 Myocardial infarction type 2 (principal); R53.2 Functional quadriplegia; E11.65 Type 2 diabetes mellitus with hyperglycemia; E11.22 Type 2 diabetes mellitus with diabetic chronic kidney disease; D69.2 Other nonthrombocytopenic purpura; F33.2 Major depressive disorder, recurrent severe without psychotic features; E83.42 Hypomagnesemia; I48.91 Unspecified atrial fibrillation; I48.92 Unspecified atrial flutter; I13.0 Hypertensive heart and chronic kidney disease with heart failure and stage 1 through stage 4 chronic kidney disease, or unspecified chronic kidney disease; I50.9 Heart failure, unspecified; D63.8 Anemia in other chronic diseases classified elsewhere; D64.9 Anemia, unspecified; E03.9 Hypothyroidism, unspecified; F03.90 Unspecified dementia, unspecified severity, without behavioral disturbance, psychotic disturbance, mood disturbance, and anxiety; E78.5 Hyperlipidemia, unspecified; K21.9 Gastro-esophageal reflux disease without esophagitis; Z95.1 Presence of aortocoronary bypass graft; I25.10 Atherosclerotic heart disease of native coronary artery without angina pectoris; E87.6 Hypokalemia; Z79.82 Long term (current) use of aspirin; Z79.899 Other long term (current) drug therapy; Z79.4 Long term (current) use of insulin; N18.9 Chronic kidney disease, unspecified; Z91.14 Patient's other noncompliance with medication regimen; F41.9 Anxiety disorder, unspecified; I70.0 Atherosclerosis of aorta; Z96.642 Presence of left artificial hip joint; Z86.73 Personal history of transient ischemic attack (TIA), and cerebral infarction without residual deficits
CPT/HCPCS: 36415; 71045-TC; 80048-TC; 80053-TC; 80061-TC; 82962-TC; 83735-TC; 84100-TC; 84439-TC; 84443-TC; 84484-TC; 85025-TC; 85378-TC; 85730-TC; 87081-TC; 93971-TC; 97116-TC; 97530-TC; A4606; J1650; J1815; J2270; J2405; J3475; J7030; J7040; Q9967; Z7610

== ENCOUNTER 2018-04-25 10:18 | Emergency (ER) | payer MEDICARE, OTHER ==
[~2018-04-25] VITALS: Ht 162.6 cm; Wt 77.1 kg
--- NOTE | 2018-04-25 10:20 | NUR ---
SANTINO ANDERSON FROM [employer] SENT BY PMD FOR LOW HEMOGLOBIN 6.1. RR IS EVEN AND UNLABORED WITH NAD NOTED. SKIN IS WARM AND DRY. PLACED ON THE MONITOR. AWAITING MD FOR EVAL.
--- NOTE | 2018-04-25 10:30 | NUR ---
IV LINE STARTED BLOOD DRAWN AND SENT TO LAB.
[2018-04-25 10:38] LABS: BASOPHILS # (AUTO) 0.1 /CMM (0.0-0.2); BASOPHILS % (AUTO) 1.6 % (0.0-2.0); EOSINOPHILS % (AUTO) 1.6 % (0.0-6.0); HEMATOCRIT 22 % (39-51); HEMOGLOBIN 7.1 g/dL (13.5-17.5); LYMPHOCYTES # (AUTO) 1.2 /CMM (0.8-4.8); LYMPHOCYTES % (AUTO) 17.5 % (20.0-44.0); MEAN CORPUSCULAR HEMOGLOBIN 27 PG (26.0-33.0); MEAN CORPUSCULAR HGB CONC 33 g/dl (31.0-36.0); MEAN CORPUSCULAR VOLUME 83 fL (80-96); MONOCYTES # (AUTO) 0.7 /CMM (0.1-1.30); MONOCYTES % (AUTO) 10.5 % (2.0-12.0); NEUTROPHILS # (AUTO) 4.9 /CMM (1.8-8.9); NEUTROPHILS % (AUTO) 68.8 % (43.0-81.0); PLATELET COUNT (AUTO) 393 /CMM (150-450); RDW COEFFICIENT OF VARIATION 19.9 (11.5-15.0); RED BLOOD CELL COUNT(AUTO) 2.63 MIL/uL (4.5-6.0)
[2018-04-25 10:49] LABS: CALCIUM, SERUM 8.4 mg/dL (8.5-10.1); CARBON DIOXIDE 35 mmol/L (21-32); CHLORIDE 94 mmol/L (98-107); CREATININE 0.9 mg/dL (0.6-1.3); GLUCOSE 190 mg/dL (74-106); POTASSIUM 4.4 mmol/L (3.5-5.1); SODIUM SERUM 129 mmol/L (136-145); UREA NITROGEN, BLOOD 13 mg/dL (7-18)
[2018-04-25 10:50] LABS: INR 1.01 (0.85-1.15)
[2018-04-25 10:55] LABS: ALANINE AMINOTRANSFERASE 81 U/L (12-78); ALKALINE PHOSPHATASE 69 U/L (46-116); ASPARTATE AMINOTRANSFERASE 59 U/L (15-37); BILIRUBIN,DIRECT 0.2 mg/dL (0.0-0.2); BILIRUBIN,TOTAL 0.6 mg/dL (0.2-1.0); TOTAL PROTEIN, SERUM 6.4 g/dL (6.4-8.2)
--- NOTE | 2018-04-25 11:05 | NUR ---
PAGED PATIENTS PMD (DR. SIRISHA WILSON)
--- NOTE | 2018-04-25 13:50 | NUR ---
CONSENT FOR BLOOD TRANSFUSION SIGNED. BLOOD TRANSFUSION INITIATED. VSS. WILL MONITOR.
--- NOTE | 2018-04-25 13:52 | NUR ---
WITNESSED AND VERIFIED FOR BLOOD TRANSFUSION.
--- NOTE | 2018-04-25 14:26 | NUR ---
CALLED [facility] FOR Nicolas BOYLE TO GO BACK TO [id number] - TRIP#[phone] - ETA [phone]
--- NOTE | 2018-04-25 16:15 | NUR ---
PT TOLERATED BLOOD TRASNFUSION WELL IVHL D/C. PT D/C HOME VIA AMBULANZ IN STABLE CONDITION.
[2018-04-25 16:17] VITALS: BP 141/61
== END 2018-04-25 16:17 | disposition home or self-care (01) ==
LOC: ER 10:19
DX: D64.9 Anemia, unspecified (principal); F03.90 Unspecified dementia, unspecified severity, without behavioral disturbance, psychotic disturbance, mood disturbance, and anxiety; I48.91 Unspecified atrial fibrillation; F41.9 Anxiety disorder, unspecified; E11.22 Type 2 diabetes mellitus with diabetic chronic kidney disease; N18.9 Chronic kidney disease, unspecified; I10 Essential (primary) hypertension; K21.9 Gastro-esophageal reflux disease without esophagitis; E03.9 Hypothyroidism, unspecified; E78.5 Hyperlipidemia, unspecified; Z95.5 Presence of coronary angioplasty implant and graft; Z95.1 Presence of aortocoronary bypass graft; Z79.82 Long term (current) use of aspirin
CPT/HCPCS: 36415; 80048; 80076; 85025; 85730; 86850; 86921; 99285; A4606; P9016-BL; Z7610